=== PATIENT | male | born 1945 | race Caucasian/White ===

== ENCOUNTER 2016-06-09 17:57 | Emergency (ER) | payer OTHER ==
--- NOTE | 2016-06-09 18:06 | EDPHY ---
H & P Time Seen by Provider: 06/09/16 17:57 HPI/ROS: CHIEF COMPLAINT: Low back pain. HISTORY OF PRESENT ILLNESS: This patient is a 71 year old male with a history of LBP who presents to the Emergency Department by EMS following an episode of acute low back pain with associated bilateral leg numbness this afternoon. He was attempting to lift the lid off of his grill when he experience an acute exacerbation of chronic low back pain and lost feeling in both of his lower extremities, causing him to fall over. Denies loss of consciousness or head, neck, or back injury due to the incident. He has been experiencing low back pain since October and has a follow-up appointment with Dr. Tahir Rizo, neurosurgery, scheduled for this Saturday. He has a history of intermittent paresthesias in both legs. He takes Gabapentin three times daily to treat his chronic pain and paresthesias. Upon arrival to the ED, he continues to complain of mild pain localized to his right hip. He denies paresthesias currently or urinary or bowel complaints. Medical history also includes type 2 diabetes and cardiac pacemaker. REVIEW OF SYSTEMS: Constitutional: No fever, no chills Eyes: No visual changes Neck: No neck pain ENT: No sore throat Respiratory: No cough, no shortness of breath Cardiac: No chest pain Gastrointestinal: No nausea, no vomiting, no abdominal pain Genitourinary: No hematuria, no dysuria Musculoskeletal: +low back pain, no leg pain or swelling Skin: No rash Neurological: No headache, +bilateral leg numbness, resolved Psychiatric: No depression Past Medical/Surgical History: Type 2 diabetes, cardiac pacemaker, bilateral knee replacements, hearing loss. Social History: Lives independently with . at bedside. Physical Exam: General Appearance: Alert, appears in pain Eyes: Pupils equal and round, no conjunctival pallor or injection ENT, Mouth: Mucous membranes moist Neck: Normal inspection Back: Midline tenderness over the sacrum Respiratory: Lungs are clear to auscultation Cardiovascular: Regular rate and rhythm Gastrointestinal: Abdomen is soft and non- tender Neurological: Alert, oriented x3, motor 5/5 both lower extremities including dorsiflexion of foot and first toe, sensory intact to light touch in BLE Skin: Warm and dry, no rash Extremities: Nontender, no pedal edema, negative straight leg raise Psychiatric: Mood and affect normal Constitutional: Initial Vital Signs Temperature (C) 36.4 C 06/09/16 18:09 Heart Rate 68 06/09/16 18:09 Respiratory Rate 20 06/09/16 18:09 Blood Pressure 129/81 H 06/09/16 18:09 O2 Sat (%) 90 L 06/09/16 18:09 O2 Delivery Mode Room Air O2 (L/minute) 3 Allergies/Adverse Reactions: venom-wasp [Wasp Venom] Allergy (Intermediate, Verified 12/04/11 01:27) Home Medications: Medication Instructions Recorded *Pharmacy Completed 12/03/11 12/03/11 Amlodipine Bes/Olmesartan Med 1 each PO DAILY 12/03/11 [Sherron 10-40 mg Tablet] Antiox#10/Om3/Dha/Epa/Lut/Zeax 1 each PO BID 12/03/11 [I-Caps with Lutein-[place] 3 Sfg] Aspirin [Aspirin 81mg (OTC)] 81 mg PO DAILY 12/03/11 Cholecalciferol (Vitamin D3) 2,000 unit PO DAILY 12/03/11 [Vitamin D-3] Gabapentin [Neurontin 300 MG (RX)] 300 mg PO BID 12/03/11 Glucosamine 1200mg 1,200 mg PO DAILY 12/03/11 Hydrochlorothiazide 25 mg PO DAILY 12/03/11 [Hydrochlorothiazide 25 MG (RX)] Metoprolol Succinate Xr [Toprol Xl 50 mg PO DAILY 12/03/11 50 mg (RX)] Naproxen [Naproxen 500 mg] 500 mg PO BID PRN 12/03/11 Niacin [Niacin 500 mg (OTC)] 500 mg PO TID 12/03/11 [place]-3 Fatty Acids [Fish Oil 1000 1,000 mg PO DAILY 12/03/11 mg (OTC)] Omeprazole [Prilosec 40 mg] 40 mg PO DAILY 12/03/11 Potassium Cl [Klor-Con 10 meq (RX)] 10 meq PO QID 12/03/11 Psyllium Husk (with Sugar) 1 each PO DAILY PRN 12/03/11 [Metamucil Packet] Rosuvastatin Calcium [Crestor 20mg 20 mg PO DAILY 12/03/11 (RX)] Diazepam [Valium 5 MG (*)] 5 mg PO Q6 PRN #10 tab 06/09/16 Hydrocodone/APAP 5/325 [[place] 1 - 2 tab PO Q4H PRN #15 tab 06/09/16 5/325] Medical Decision Making - Diagnostics Imaging: Study: CT of the lumbar spine Indication: Pain Results: CT scan of the lumbar spine was obtained. The results of the study are : 1. Multilevel advanced degenerative spondylosis, disk disease, and facet osteoarthrosis with accompanying central canal and neural foraminal stenoses, as above detailed. 2. Cholelithiasis. 3. Nonobstructive right nephrolithiasis. 4. Old moderate L1 compression fracture, unchanged from 2016. The study was read by the radiologist, Dr. Amrit Queen. I viewed the images myself on the PACS system. Study: CT of the lumbar spine Indication: Pain Results: CT scan of the lumbar spine was obtained. The results of the study are : There is no acute pelvic osseous abnormality identified. The study was read by the radiologist, Dr. Amrit Queen. I viewed the images myself on the PACS system. ED Course/Re-evaluation: 1756: Took EMS report at bedside: stable vitals; 200mcg administered in transport. This patient has a history of low back pain presenting with intermittent right leg paresthesias beginning in October and worsening over time. Today's incident of acute severe pain and bilateral leg paresthesias was more severe than previous, prompting his to call EMS. He has a scheduled appointment with Dr. Rizo on Saturday. Will proceed with CT of the lumbar spine and pain management. Unable to perform MRI since pt has a pacemaker. 15mg IV Toradol, 5mg IV Valium, and 2 tab PO [place] administered. 2017: Imaging results reported to me by Dr. Amrit Queen. I discussed these results with the patient and his . The pt feels much better and would like to go home. He will f/u with Dr. iRzo in the office. Differential Diagnosis: Differential diagnosis for back pain includes muscular pain, herniated disc, epidural abscess, cauda equina syndrome, discitis, spine fracture, intra- abdominal causes and urinary tract infection. - Data Points Medications Given: Discontinued Medications Hydrocodone Bitart/Acetaminophen ([place] 5/325) 2 tab PO EDNOW ONE Stop: 06/09/16 18:33 Last Admin: 06/09/16 18:48 Dose: 2 tab Hydrocodone Bitart/Acetaminophen ([place] 5/325mg Prepack#6) 1 btl TAKEHOME EDNOW ONE Stop: 06/09/16 20:39 Last Admin: 06/09/16 20:45 Dose: 1 btl Diazepam (Valium Injection) 5 mg IVP EDNOW ONE Stop: 06/09/16 18:33 Last Admin: 06/09/16 18:50 Dose: 5 mg Diazepam (Valium 5 Mg Prepack#4) 1 btl TAKEHOME EDNOW ONE Stop: 06/09/16 20:39 Last Admin: 06/09/16 20:44 Dose: 1 btl Ketorolac Tromethamine (Toradol) 15 mg IVP EDNOW ONE Stop: 06/09/16 18:34 Last Admin: 06/09/16 18:55 Dose: 15 mg Departure - Departure Disposition: Home, Routine, Self-Care Clinical Impression: Low back pain Qualifiers: Chronicity: acute Back pain laterality: bilateral Sciatica presence: without sciatica Qualified Code(s): M54.5 - Low back pain Condition: Good Instructions: Hydrocodone/Acetaminophen (By mouth), Diazepam (By mouth), Chronic Back Pain (ED) Additional Instructions: 1. Use Ibuprofen every 6 hours with food to help manage pain and inflammation. 2. Take Vicodin every 4 hours as needed for pain. 3. Take Valium every 6 hours as needed for pain. 4. Keep your appointment with Dr. Rizo on Saturday. 5. Return to the Emergency Department if you experience worsening numbness or pain, bowel or urinary incontinence, or other serious concerns. Referrals: Mary Rizo MD [Medical Doctor] - As per Instructions Prescriptions: Diazepam [Valium 5 MG (*)] 5 mg PO Q6 PRN #10 tab PRN Reason: Anxiety Hydrocodone/APAP 5/325 [[place] 5/325] 1 - 2 tab PO Q4H PRN #15 tab PRN Reason: Pain, Moderate Report Scribed for: Leeanne Pak Report Scribed by: Vanesa Garvin Date of Report: 06/09/16 Time of Report: 17:57 Physician Review and Approval Statement: 06/09/16 17:57 Portions of this note were transcribed by a medical laboratory technologist. I personally performed a history, physical exam, medical decision making, and confirmed accuracy of information the transcribed note.
[2016-06-09 18:12] VITALS: TEMP 97.5
[2016-06-09] MEDS ORDERED: HYDROCODONE/APAP 5/325 TAB PO ONE (18:32)
[2016-06-09] MEDS ORDERED: DIAZEPAM 10 MG/2 ML SYR IVP ONE (18:32)
[2016-06-09] MEDS ORDERED: KETOROLAC 30 MG/1 ML SDV IVP ONE (18:33)
[2016-06-09] MEDS ORDERED: HYDROCOD/APAP 5/325 PREPACK#6 BTL TAKEHOME ONE (20:38)
[2016-06-09] MEDS ORDERED: DIAZEPAM 5 MG PREPACK#4 BTL TAKEHOME ONE (20:38)
[2016-06-09 20:58] VITALS: BP 136/84; PULSE 69; RESP 18; O2SAT 92
== END 2016-06-09 20:57 | disposition home or self-care (01) ==
LOC: EDUNIT#
DX: M54.5 Low back pain (principal); E11.9 Type 2 diabetes mellitus without complications; Z79.82 Long term (current) use of aspirin; Z95.0 Presence of cardiac pacemaker
CPT/HCPCS: 72131; 72192; 96374; 96375; 99285; J1885

== ENCOUNTER 2016-06-12 13:35 | Inpatient (IN) | payer OTHER ==
[2016-06-12] MEDS ORDERED: METOCLOPRAMIDE 10 MG TAB PO PRN (14:45)
[2016-06-12] MEDS ORDERED: NALOXONE HCL 0.4 MG/ML INJ IVP PRN (14:45)
[2016-06-12] MEDS ORDERED: MAGNESIUM HYDROXIDE 30 ML UDCUP PO PRN (14:45)
[2016-06-12] MEDS ORDERED: LORazepam 0.5 MG TAB PO PRN (14:45)
[2016-06-12] MEDS ORDERED: BISACODYL 10 MG SUPP PR PRN (14:45)
[2016-06-12] MEDS ORDERED: morphINE PCA 30 MG/30 ML PCA IV PRN (14:45)
[2016-06-12] MEDS ORDERED: ONDANSETRON DISINTEGRATING 4 MG TAB PO PRN (14:45)
[2016-06-12] MEDS ORDERED: ONDANSETRON 4 MG/2 ML VIAL IVP PRN (14:45)
[2016-06-12] MEDS ORDERED: HYDROmorphONE/DILAUDID 1 MG/ML SYR IVP PRN (14:45)
[2016-06-12] MEDS ORDERED: diphenhydrAMINE 25 MG CAP PO PRN (14:45)
[2016-06-12] MEDS ORDERED: POLYETHYLENE GLYCOL 3350 17 GM PKT PO PRN (14:45)
[2016-06-12] MEDS ORDERED: LORazepam 2 MG/ML INJ IVP PRN (14:45)
[2016-06-12] MEDS ORDERED: ACETAMINOPHEN 325 MG TAB PO PRN (14:45)
[2016-06-12] MEDS ORDERED: LACTULOSE 20 GM/30 ML UDCUP PO PRN (14:45)
[2016-06-12] MEDS ORDERED: ZOLPIDEM TARTRATE 5 MG TAB PO PRN (14:45)
[2016-06-12 17:07] LABS: % IMMATURE GRANULYOCYTES 0.4 % (0.0-1.1); ABSOLUTE IMMATURE GRANULOCYTES 0.03 10^3/uL (0.00-0.10); ADD DIFF? NO; ADD MORPH? NO; ADD SCAN? NO; ATYPICAL LYMPHOCYTE FLAG 10 (0-99); FRAGMENT RBC FLAG 0 (0-99); HEMATOCRIT 42.8 % (40.0-51.0); HEMOGLOBIN 14.9 g/dL (13.7-17.5); LEFT SHIFT FLG 0 (0-99); LIPEMIA HEMOLYSIS FLAG 90 (0-99); MEAN CELL HEMOGLOBIN 30.3 pg (27.9-34.1); MEAN CELL HEMOGLOBIN CONCENTR. 34.8 g/dL (32.4-36.7); MEAN PLATELET VOLUME 9.3 fL (8.7-11.7); PLATELET CLUMPS FLAG 10 (0-99); PLATELET COUNT 103 10^3/uL (150-400); RED BLOOD CELL COUNT 4.92 10^6/uL (4.40-6.38); RED CELL DISTRIBUTION WIDTH 13.6 % (11.5-15.2)
[2016-06-12 17:19] LABS: ANION GAP 12 mEq/L (8-16); CALCIUM 9.6 mg/dL (8.5-10.4); CARBON DIOXIDE 21 mEq/l (22-31); CHLORIDE 105 mEq/L (97-110); GLOMERULAR FILTRATION RATE > 60; GLUCOSE 106 mg/dL (70-100); POTASSIUM 4.5 mEq/L (3.5-5.2); SODIUM 138 mEq/L (134-144)
--- NOTE | 2016-06-12 17:27 | GHP ---
DATE OF ADMISSION: 06/12/2016 CHIEF COMPLAINT: 1. Inability to walk. 2. Lower back pain with bilateral lower extremity pain and numbness from injury sustained 3 weeks a go as well as approximately 4 days ago. HISTORY OF PRESENT ILLNESS: The patient is a 71-year-old male who presented to our clinic today wit h increasing and inability to walk. He states that about 3 weeks ago he was pulling a rug off a dec k and felt a strain in his back. He stated that this pain has worsened so much to the effect that i s causing some impact to his walking. He also has numbness to the legs over the course of the last 3 weeks, and this has worsened as well. He states that this most recent Saturday (06/09/2016), he w as pulling a cover off a drill when he felt sudden worsening symptoms and weakness in his legs. He did have a fall associated with this. At this point he cannot walk more than 100 feet without falli ng. He states that he has fallen multiple times. He does get periodic numbness in the groin; he de nies any symptoms in the groin at this time. He denies any loss of bowel or bladder control. He steele d a non-myelogram CT that was done in the emergency department which showed degenerative disk change s noted. There was significant arthritis and degenerative changes noted from L1 to S1. He has trie d medications, including a Medrol Dosepak, without success. He does have some changes in his gait a nd balance. He denies any fevers or chills. No nausea, vomiting, or diarrhea. He is also a patien t of Dr. Lara. PAST MEDICAL HISTORY: 1. Hypercholesterolemia. 2. Gout. 3. Hypertension. 4. GERD. 5. Heart arrhythmias. 6. Diabetes. PAST SURGICAL HISTORY: Not listed. MEDICATIONS: 1. Bupropion HCL 150 mg. 2. Celebrex 200 mg. 3. Omeprazole. 4. Tramadol. 5. Amlodipine. 6. Allopurinol. 7. Valsartan. 8. Atorvastatin. 9. Metformin. 10. Hydrochlorothiazide. 11. B10. 12. D3. Please see med rec form after pharmacy review. ALLERGIES: Wasp venom. SOCIAL HISTORY: Patient is . Lives in the [place] area. FAMILY HISTORY: Noncontributory. IMMUNIZATIONS: Reported up to date. TRAVEL: No recent travel. REVIEW OF SYSTEMS: Complete review of systems in conjunction with the above, noted for the followin g: HEAD: No headache. No diplopia. No blurred vision. No loss of visual field. No hearing loss , tinnitus, or vertigo. PULMONARY: No cough, sputum production, hemoptysis, dyspnea, or pleuritic chest pain. CARDIAC: No chest pain or pressure. No palpitations. GI: No weight loss or gain. N o nausea, vomiting, or diarrhea. : No dysuria, hematuria, nocturia, urgency, or frequency. NEURO : Patient denies any dizziness or syncope. Does has some frequent falls. No seizures. Some pares thesias. Some weakness. Some symptoms of claudication neurogenic. PSYCHIATRIC: No suicidality or homicidality. PHYSICAL EXAMINATION: GENERAL: This is an awake, alert, oriented male, in no acute distress. VITAL SIGNS: Most recently blood pressure 126/78, heart rate of 63, 16 respirations, 94% on room air, an d a temperature of 36.4. HEENT. Head is normocephalic, atraumatic. Pupils are equal, round, and r eactive to light. EOMI's intact. Full visual sands by confrontation. Ears are patent. Nose is p atent. NECK: Soft, supple. No midline tenderness. Full range of motion in flexion, extension, la teral bearing, or rotation. RESPIRATORY AND CARDIAC: No respiratory distress. ABDOMEN: Soft, non tender. No peritoneal signs. and RECTAL: Deferred. NEURO: Patient is awake, alert, and oriented to name, place, location, date, time, and situation. Memory is intact to immediate, past, and current events. Speech with no aphasia, dysarthria, or dys phonia. Cranial nerves 2-12 are grossly intact. Motor: Patient has 5/5 strength in all muscle joão ups of the bilateral upper and lower extremities, to include deltoids, biceps, triceps, brachioradia lis, wrist flexion and extensors, special skills officer, intrinsic fingers, iliopsoas, quadriceps, hamstring, plantar flexion, dorsiflexion, EHL testing. Sensation is grossly intact to light touch throughout all derm atome distributions of upper and lower extremities. Negative straight leg raise. Negative SHADY te st. Reflexes of biceps, triceps, brachioradialis, knee jerk, and ankle jerk are 2+ out of 4. Toes are downgoing bilaterally. Joya's negative. Babinski negative. No evidence of clonus. DIAGNOSTIC STUDIES: Laboratory tests: Pending CBC, pending coag's and chemistry. DIAGNOSTIC STUDIES: CT scan, noncontrast (meaning non-myelogram study CT scan), that was obtained o n 06/09/2016 at [facility] shows multilevel advanced degenerative spondylosis, disk disease, and facet osteoarthritis, with accompanying central canal and neural foraminal stenosis, mo st severe at L4-5 and L5-S1. Old moderate L1 compression fracture noted. IMPRESSION: 1. Worsening lower extremity weakness with transient and sporadic saddle numbness; none present at this time. No bowel or bladder changes. 2. Degenerative disk disease. Lumbar radiculitis. Most severe L4-5 and L5-S1. 3. Frequent falls. PLAN/DISCUSSION: The patient is a 71-year-old male who presented to my clinic today and was seen an d evaluated both by myself and Dr. Rizo. He is a gentleman who has had worsening symptoms over th e past 3 weeks since he felt a strain in his back. He was pulling a rug approximately 3 weeks ago a nd developed the strain in his back, and this progressively worsened to the point now where he can w alk no further than 100 feet, and he is falling frequently. He did have a noncontrast (specifically non-myelogram) CT scan that was done on 06/09/2016 that shows degenerative changes and central sten osis at L4-5 and L5-S1. I recommended admission to the hospital. Patient was in agreement with ion mckenzie as his is a nurse with Dr. Hieu Reyes. She was in agreement with this as well. The patie nt will be admitted to our service. I did speak with Dr. Lara, and he will consult regarding me dicine and managed the medicines on which he is currently. The patient's aspirin was held. A CT my elogram of the lumbar spine was ordered. The patient understands and agrees, as does his . All questions and concerns were answered. /[id number]/MODL
--- NOTE | 2016-06-12 17:28 | SOAPPROG ---
NARESH Progress Note Assessment/Plan: Assessment: 71 yo male admitted by neurosurgery for further w/u of advanced DJD/spondylosis back pain with progressive radiculopathy and numbness of both legs from low waist down intermittently. He was in the ER 3 nights ago when he was unable to get up a stair on his back porch due to his legs being fully numb. EMS was called and helped him up and was BIBA to ER. In the ER he had a ct done (he has a pacemaker and can not have a MRI) and Dr. Rizo would like a ct myelogram for further assessment and planning which NS has ordered for tomorrow (or if unable to be done). This is being ordered with preparation for surgery anticipated either or Saturday this week. We were asked to follow along with this delightful male w/ progress by pt and spouse due to his NIDDM, h/o pacer, cad by heart scan, htn, gerd. -back pain w/ radiculopathy and decreased intermittent leg strength - per NS, awaiting ct myelogram and surgery later this week. Pain management per NS. -htn - Don is typically well controlled with metoprolol 50 bid, hctz 25 qam, valsartan, amlodipine. Will cont on meds and check bmp (pending) and watch renal function, may need to adjust. -cad by heart scan - cont on statin, holding asa, pt self-d/c'd fish oil will need to restart after surgery, vit d, niacin. -GERD - is on ppi, cont for now. Discussed after hospitalization we could give trial w/ H2 bry and see if tolerates ok. He had tried to come off the ppi by taking a 1/2 tab and was unsuccessful. -DM - will hold metformin tomorrow w/ ct myelogram, will check fsbs, add in small dose insulin if needed. Recent a1c 6.3 which is higher than usual for Don. -dvt proph - per NS -dispo - will be inpt, anticipate several days admission w/ upcoming surgery. Plan: 06/12/16 17:16 Subjective: doing fine, eating dinner, hopeful to get myelogram tomorrow, spouse in room Objective: Vital Signs Temp Pulse Resp BP Pulse Ox 36.4 C 63 16 126/78 H 94 06/12/16 14:37 06/12/16 14:37 06/12/16 14:37 06/12/16 14:37 06/12/16 14:37 Laboratory Results 06/12/16 16:40 06/11/16 06/12/16 06/13/16 05:59 05:59 05:59 Intake Total 500 Balance 500 Gen: a&O x 3, eating dinner, good spirits HEENT: wears bilateral hearing aids (new 2-3 weeks ago) NEck: soft supple CHest: pacer L chest CV: rrr nl s1 s2 Respy CTA B Abd: soft nt/nd nl bs Ext: trace edema ble Neuro: currently sensation intact, strength symmetric ble Psych: good eye contact, good spirits - Pending Discharge Pending Discharge Within 48 Hours: No ICD10 Worksheet Patient Problems: Problems Problem Status Onset MRSA (methicillin resistant Staphylococcus aureus) Acute 06/28/15 Low back pain Acute
[2016-06-12 17:30] LABS: INR 1.07 (0.83-1.16); PROTIME(PATIENT) 13.8 SEC (12.0-15.0)
[2016-06-12] MEDS: HYDROCODONE/APAP 5/325 TAB PO PRN ×2 (19:03→23:24)
--- NOTE | 2016-06-12 19:11 | GCON ---
CONSULTATION HISTORY AND PHYSICAL ADMISSION DIAGNOSIS: Back pain with radiculopathy. HISTORY OF PRESENT ILLNESS: Patient is a 71-year-old delightful male admitted earlier today by Neurosurgery for further workup of his advanced degenerative disc disease, arthritis, spondylosis, with progressive radiculopathy and numbness of both legs (saddle distribution), which has been intermittent from about his waist down. Of note, he was in the ER 3 nights ago, when he had just returned home from a trip to see one of his granddaughters, and was trying to walk up one stair on his back porch, and was unable to move his legs. He had also had a couple recent falls. They had to call EMS, and brought him to the ER. He did have a CT done. Unfortunately, could not have an MRI due to his pacemaker, and Dr. Rizo wanted a CT myelogram for further assessment and planning prior to surgery later this week. He was in clinic today, and was admitted straight from clinic to the hospital by Neurosurgery, with orders placed for a CT myelogram hopefully tomorrow, and hopefully surgery within the next couple of days. PAST MEDICAL HISTORY: The patient's past medical history is significant for noninsulin-dependent diabetes, history of a pacemaker, coronary artery disease by heart scan, hypertension, gastroesophageal reflux. The patient and his spouse ask that we follow along to help manage these issues, as they have been patients of Dr. Ryan Eisenberg for many years now. Past medical history significant for spondylosis, DJD, radiculopathy as above, GERD, on chronic PPI, bilateral knee pain, status post bilateral TKA, coronary atherosclerosis by heart scan, hypertension, ureteral uric acid stones, remote history of ulcerative colitis. SURGICAL HISTORY: Positive for bilateral TKA. FAMILY HISTORY: His mom at 97. Dad at 82, had emphysema, peptic ulcer disease, coronary artery disease. Has a sister who is alive with hyperlipidemia. SOCIAL HISTORY: He is . He was a former smoker, but it has been more than 10 years since he last smoked. He has rare social alcohol. ALLERGIES: No known drug allergies. REVIEW OF SYSTEMS: GENERAL: He has been in his usual state of health, other than his back pain. No recent illnesses, fevers, chills. HEENT: Significant for some hearing loss. He just got hearing aids 2 or 3 weeks ago. No acute change in vision. RESPIRATORY: Denies any cough or shortness of breath. CARDIOVASCULAR : Denies any chest pain or palpitations. GI: No nausea and vomiting. Bowels have been moving regularly. MUSCULOSKELETAL: Positive for back pain. NEUROLOGIC : Positive for radiculopathy and loss of strength, and numbness in legs intermittently, see HPI. HEMATOLOGIC/ALLERGIC: Negative. PSYCHIATRIC: No acute problematic mood issues. PHYSICAL EXAMINATION: VITAL SIGNS: Blood pressure 126/78, heart rate 63, respiratory rate 16, oxygen saturation 94% on room air. GENERAL: Pleasant male, overweight, eating dinner, in good spirits, talking with his . HEENT: Bilateral hearing aids. NECK: Soft and supple. CHEST: Has pacer in his left chest. CARDIOVASCULAR: Regular rate and rhythm. Normal S1, S2. RESPIRATORY: Clear to auscultation bilaterally. ABDOMEN: Soft, nontender, nondistended. Normal bowel sounds. EXTREMITIES: Trace ankle edema on bilateral lower extremities. NEUROLOGIC: Currently sensation intact to touch, bilateral lower extremities, and symmetric strength. PSYCHIATRIC: Good eye contact and communication, in good spirits. ASSESSMENT AND PLAN: A 71-year-old male admitted by Neurosurgery for progressive back pain, djd, OA with radiculopathy for further workup and planned surgery. 1. Back pain with radiculopathy, decreased intermittent leg strength. Per Neurosurgery, awaiting CT myelogram and surgery later this week. Pain management per Neurosurgery. 2. Hypertension. Per patient, is typically well controlled with metoprolol, hydrochlorothiazide, valsartan and amlodipine. Will follow medications and adjust accordingly. Watch renal function. 3. History of coronary atherosclerosis by heart scan. Continue on a statin. Holding aspirin. The patient is self-discontinued fish oil, and will need to restart this after surgery. Is on vitamin D and niacin. 4. Gastroesophageal reflux disease. He would like to stop his PPI, did a recent trial, but was unsuccessful. Taking a half tab. Ultimately, after surgery , consider H2 bry, but for now, with upcoming surgery, we will continue with PPI. 5. Diabetes. Will hold metformin tomorrow with CT myelogram. Will place on fingerstick blood sugar checks. Add low-dose insulin if needed. Recent A1c was 6.3, which per the patient and his , it is much higher than he normally has been. 6. Deep vein thrombosis prophylaxis per Neurosurgery. 7. Disposition: The patient will be admitted to inpatient with upcoming planned surgery per Neurosurgery. Appreciate consultation, and will follow along. /[id number]/MODL MTDD
[2016-06-12] MEDS ORDERED: PSYLLIUM METAMUCIL 1 PKT PO PRN (20:10)
[2016-06-12] MEDS ORDERED: traMADol 50 MG TAB PO PRN (20:10)
[2016-06-12] MEDS: METOPROLOL TARTRATE 50 MG TAB PO SCH (20:34)
[2016-06-12] MEDS: SENNOSIDES/DOCUSATE SODIUM TAB PO SCH (20:34)
[2016-06-12] MEDS: CHOLECALCIFEROL VIT D3 2,000 UNITS TAB/CAP PO SCH (20:34)
[2016-06-12] MEDS: POTASSIUM CITRATE 10 MEQ TAB PO SCH (21:02)
[2016-06-12] MEDS: PRESERVISION AREDS2 FORMULA EYE VIT 1 EACH PO SCH (21:02)
[2016-06-12] MEDS: NS W/ 20 KCl/L 1,000 ML IV SCH (21:02)
[2016-06-12] MEDS: GABAPENTIN 300 MG CAP PO SCH (21:02)
[2016-06-12] MEDS: NIACIN 500 MG TAB PO SCH (21:02)
[2016-06-13] MEDS: oxyCODONE IR 5 MG TAB PO PRN ×4 (02:21→18:25)
[2016-06-13] MEDS: HYDROCODONE/APAP 5/325 TAB PO PRN ×3 (05:40→21:28)
--- NOTE | 2016-06-13 07:09 | NEUSURGPN ---
Assessment/Plan: Assessment: 71 yo male that was admitted to with lower back pain/BLE pain/ inability to walk/falls Plan: -pt lying in bed comfortable-continue with current pain management strategy -IM consulted and on board-appreciate their input and care -PT/OT -CT myelogram this am pending -pt to call for help with walking around or to bathroom to prevent falls-pt understands this and agrees -warning signs given -call with any questions or concerns -please call when CT is completed Subjective: Awake and alert. NAD. Eating/drinking and voiding. No f/c/n/v/d. No other complaints or concerns Objective: AAO x 3, PERRLA/EOMI no droop CN 2-12 grossly intact +lt touch 5/5 BUE/BLE = +cms/nv intact x 4 Neuro Check Frequency: per routine Urinary Catheter in Place: No - Physician Discussed Patient with .: Darrius Patient Seen by .: Darrius Neurosurgery Physical Exam - Vitals, I&O, Labs I and O 06/12/16 06/13/16 06/14/16 05:59 05:59 05:59 Intake Total 2300 Output Total 900 Balance 1400 Weight 99.79 kg Intake: Oral (ml) 1550 IV Infused (ml) 750 NS W/ 20 KCl/L 1,000 ml @ 750 75 mls/hr IV CONT RUTH Rx #:[id number] Output: Urine (ml) 900 Toilet 900 Other: Number of Voids Toilet 1 Vital Signs Temp Pulse Resp BP Pulse Ox 36.4 C 65 16 127/87 H 95 06/13/16 04:00 06/13/16 04:00 06/13/16 04:00 06/13/16 04:00 06/13/16 04:00 Laboratory Results 06/12/16 16:40 06/12/16 16:40 ICD10 Worksheet Patient Problems: Problems Problem Status Onset Low back pain Acute MRSA (methicillin resistant Staphylococcus aureus) Acute 06/28/15
[2016-06-13] MEDS: GABAPENTIN 300 MG CAP PO SCH ×3 (08:05→21:29)
[2016-06-13] MEDS: POTASSIUM CITRATE 10 MEQ TAB PO SCH ×3 (08:07→21:29)
[2016-06-13] MEDS: METOPROLOL TARTRATE 50 MG TAB PO SCH ×2 (08:07→21:26)
[2016-06-13] MEDS: PRESERVISION AREDS2 FORMULA EYE VIT 1 EACH PO SCH ×2 (08:07→17:30)
[2016-06-13] MEDS: CHOLECALCIFEROL VIT D3 2,000 UNITS TAB/CAP PO SCH ×2 (08:07→21:29)
[2016-06-13] MEDS: NIACIN 500 MG TAB PO SCH ×3 (08:07→21:29)
[2016-06-13] MEDS: SENNOSIDES/DOCUSATE SODIUM TAB PO SCH ×2 (08:08→21:29)
[2016-06-13] MEDS: VALSARTAN 160 MG TAB PO SCH (08:08)
--- NOTE | 2016-06-13 08:42 | SOAPPROG ---
SOAP Progress Note Assessment/Plan: Assessment: Plan: 06/13/16 08:41 complex spinal DDD/DJD--significant neurologic consequences, CT myelogram pending today. HTN, CAD, high chol, DM--stable cleared for surgery constipation--make miralax daily scheduled Subjective: Reports progressive N/T in pelvis and right leg. Increasing weakness and limited mobility. CT myelogram pending. Objective: Vital Signs Temp Pulse Resp BP Pulse Ox 37.0 C 68 16 138/82 H 94 06/13/16 07:27 06/13/16 08:07 06/13/16 07:27 06/13/16 08:08 06/13/16 07:27 Laboratory Results 06/12/16 16:40 06/12/16 16:40 06/12/16 06/13/16 06/14/16 05:59 05:59 05:59 Intake Total 2300 Output Total 900 Balance 1400 PT 13.8 SEC (12.0-15.0) 06/12/16 16:40 INR 1.07 (0.83-1.16) 06/12/16 16:40 Gen: pleasant, uncomfortable Heart: RRR Pacer left chest wall Lungs: CTAB LE's no edema ICD10 Worksheet Patient Problems: Problems Problem Status Onset Low back pain Acute MRSA (methicillin resistant Staphylococcus aureus) Acute 06/28/15
[2016-06-13] MEDS: NS W/ 20 KCl/L 1,000 ML IV SCH (10:15)
[2016-06-13] MEDS ORDERED: NA BICARBONATE 50 MEQ/50 ML VIAL ONE (10:24)
[2016-06-13] MEDS ORDERED: IOPAMIDOL (ISOVUE-M 200) 20 ML VIAL IV ONE (10:24)
[2016-06-13] MEDS ORDERED: LIDOCAINE 1% 30 ML SDV ONE (10:24)
[2016-06-13] MEDS: POLYETHYLENE GLYCOL 3350 17 GM PKT PO SCH (14:16)
[2016-06-13] MEDS: HYDROCHLOROTHIAZIDE 25 MG TAB PO SCH (16:36)
[2016-06-13] MEDS: PANTOPRAZOLE SODIUM 40 MG TAB PO SCH (17:30)
[2016-06-13] MEDS: METHOCARBAMOL 750 MG TAB PO PRN (18:26)
[2016-06-14] MEDS: METHOCARBAMOL 750 MG TAB PO PRN ×2 (01:34→08:06)
[2016-06-14] MEDS: oxyCODONE IR 5 MG TAB PO PRN ×3 (01:34→12:13)
--- NOTE | 2016-06-14 07:44 | NEUSURGPN ---
Assessment/Plan: Assessment: 71 yo male that was admitted to with lower back pain/BLE pain/ inability to walk/falls Plan: -pt lying in bed comfortable-continue with current pain management strategy -IM consulted and on board-appreciate their input and care-cleared from IM for surgery today -pt set for L3/4 and L4/5 laminectomy -consents, need and risks of surgery was discussed -OR notified to contact [facility] for pacemaker -PT/OT-CPM -CT myelogram shows stenosis L3/4 and L4/5 stenosis -pt to call for help with walking around or to bathroom to prevent falls-pt understands this and agrees -warning signs given -call with any questions or concerns Subjective: Awake and alert. NAD. NPO. No steele/neck/chest/abd or gu complaints. No f/c/n/v /d. Objective: AAO x 3, PERRLA/EOMI no droop CN 2-12 grossly intact +lt touch 5/5 BUE/BLE = +cms/nv intact x 4 Neuro Check Frequency: per routine Urinary Catheter in Place: No - Physician Discussed Patient with Dr.: Darrius Patient Seen by .: Darrius Neurosurgery Physical Exam - Vitals, I&O, Labs I and O 06/13/16 06/14/16 06/15/16 05:59 05:59 05:59 Intake Total 2300 400 Output Total 900 300 Balance 1400 100 Weight 99.79 kg Intake: Oral (ml) 1550 400 IV Infused (ml) 750 NS W/ 20 KCl/L 1,000 ml @ 750 75 mls/hr IV CONT RUTH Rx #:[id number] Output: Urine (ml) 900 300 Toilet 900 Urinal 300 Other: Number of Voids Toilet 1 Urinal 1 Vital Signs Temp Pulse Resp BP Pulse Ox 36.4 C 69 16 131/83 H 95 06/14/16 07:29 06/14/16 07:29 06/14/16 07:29 06/14/16 07:29 06/14/16 07:29 Laboratory Results 06/12/16 16:40 06/12/16 16:40 ICD10 Worksheet Patient Problems: Problems Problem Status Onset Low back pain Acute MRSA (methicillin resistant Staphylococcus aureus) Acute 06/28/15
[2016-06-14] MEDS: HYDROCODONE/APAP 5/325 TAB PO PRN (08:06)
[2016-06-14] MEDS: POLYETHYLENE GLYCOL 3350 17 GM PKT PO SCH (08:08)
[2016-06-14] MEDS: NIACIN 500 MG TAB PO SCH ×3 (08:09→21:07)
[2016-06-14] MEDS: POTASSIUM CITRATE 10 MEQ TAB PO SCH ×3 (08:09→21:07)
[2016-06-14] MEDS: SENNOSIDES/DOCUSATE SODIUM TAB PO SCH ×2 (08:09→20:29)
[2016-06-14] MEDS: HYDROCHLOROTHIAZIDE 25 MG TAB PO SCH (08:09)
[2016-06-14] MEDS: METOPROLOL TARTRATE 50 MG TAB PO SCH ×2 (08:09→20:21)
[2016-06-14] MEDS: PRESERVISION AREDS2 FORMULA EYE VIT 1 EACH PO SCH ×2 (08:09→17:29)
[2016-06-14] MEDS: VALSARTAN 160 MG TAB PO SCH (08:09)
[2016-06-14] MEDS: GABAPENTIN 300 MG CAP PO SCH ×3 (08:09→21:08)
[2016-06-14] MEDS: CHOLECALCIFEROL VIT D3 2,000 UNITS TAB/CAP PO SCH ×2 (08:09→20:28)
--- NOTE | 2016-06-14 08:23 | SOAPPROG ---
SOAP Progress Note Assessment/Plan: Assessment: Plan: 06/13/16 08:41 complex spinal DDD/DJD--significant neurologic consequences, CT myelogram pending today. HTN, CAD, high chol, DM--stable cleared for surgery constipation--make miralax daily scheduled 06/14/16 08:22 Critical spinal stenosis--proceed with surgery as planned. No prior issues with anesthesia. Pacer/Defib HTN, CAD, high chol, DM--stable Subjective: He is doing ok. Prepared for surgery this afternoon. No prior problems with anesthesia. Objective: Vital Signs Temp Pulse Resp BP Pulse Ox 36.4 C 69 16 131/83 H 95 06/14/16 07:29 06/14/16 07:29 06/14/16 07:29 06/14/16 07:29 06/14/16 07:29 Laboratory Results 06/12/16 16:40 06/12/16 16:40 06/13/16 06/14/16 06/15/16 05:59 05:59 05:59 Intake Total 2300 400 Output Total 900 300 Balance 1400 100 PT 13.8 SEC (12.0-15.0) 06/12/16 16:40 INR 1.07 (0.83-1.16) 06/12/16 16:40 Gen: NAD Lungs: CTAB Heart: RRR Abd + bs soft LE's no edema CT myelogram--critical stenosis, contrast trapped ICD10 Worksheet Patient Problems: Problems Problem Status Onset Low back pain Acute MRSA (methicillin resistant Staphylococcus aureus) Acute 06/28/15
[2016-06-14] MEDS ORDERED: DEPO METHYLPREDNISOLONE 40 MG/ML SDV ONE (12:47)
[2016-06-14] MEDS ORDERED: BACITRACIN 50,000 UNITS/10 ML SYR IRR ONE (12:47)
[2016-06-14] MEDS ORDERED: BUPIVACAINE/EPI 0.25% 30 ML SDV ONE (12:47)
[2016-06-14] MEDS ORDERED: THROMBIN (RECOMBINANT) 5,000 UNIT VIAL TP ONE (12:47)
[2016-06-14] MEDS ORDERED: REMIFENTANIL HCL 1 MG VIAL ONE ×2 (15:07→17:02)
[2016-06-14] MEDS ORDERED: MIDAZOLAM 2 MG/2 ML VIAL ONE (15:08)
[2016-06-14] MEDS ORDERED: PROPOFOL/EMULSION 500 MG/50 ML BOTTLE IV ONE ×2 (15:08→17:02)
[2016-06-14] MEDS ORDERED: fentaNYL 250 MCG/5 ML INJ ONE (15:08)
[2016-06-14] MEDS ORDERED: LIDOCAINE 2% 100 MG/5 ML SYR ONE (15:11)
[2016-06-14] MEDS ORDERED: VANCOMYCIN 1.5 GM in D5W 250 ML IV ONE (15:30)
[2016-06-14] MEDS ORDERED: ceFAZolin 2 GM/DEXTROSE 100 ML IV ONE (16:00)
[2016-06-14] MEDS ORDERED: ALBUMIN 5% 250 ML BOTTLE IV ONE (16:02)
[2016-06-14] MEDS ORDERED: DOPamine/DEXTROSE/250 ML BAG IV ONE (17:01)
[2016-06-14] MEDS: PANTOPRAZOLE SODIUM 40 MG TAB PO SCH (17:30)
[2016-06-14] MEDS ORDERED: fentaNYL 100 MCG/2 ML INJ ONE ×2 (17:42→18:43)
--- NOTE | 2016-06-14 18:12 | SOAPPROG ---
SOAP Progress Note Assessment/Plan: Post Op Visit: S: Awake and alert. Pt with expected lower back pain O: AFVSS, PERRLA/EOMI no droop CN 2-12 grossly intact +lt touch 5/5 BUE/BLE = CDI MOE in place A/P: 71 yo male that is s/p L3/4 and L4/5 laminectomy for LE pain and claudication -orders in place -call with any questions or concerns -take medications as directed -seen by Dr Rizo as well Objective: Vital Signs Temp Pulse Resp BP Pulse Ox 36.4 C 69 16 131/83 H 95 06/14/16 07:29 06/14/16 07:29 06/14/16 07:29 06/14/16 07:29 06/14/16 07:29 Laboratory Results 06/12/16 16:40 06/12/16 16:40 06/13/16 06/14/16 06/15/16 05:59 05:59 05:59 Intake Total 2300 400 Output Total 900 300 Balance 1400 100 PT 13.8 SEC (12.0-15.0) 06/12/16 16:40 INR 1.07 (0.83-1.16) 06/12/16 16:40 ICD10 Worksheet Patient Problems: Problems Problem Status Onset Low back pain Acute MRSA (methicillin resistant Staphylococcus aureus) Acute 06/28/15
[2016-06-14] MEDS ORDERED: DIAZEPAM 5 MG TAB PO PRN (18:14)
[2016-06-14] MEDS ORDERED: DIAZEPAM 10 MG/2 ML SYR IVP PRN (18:14)
[2016-06-14] MEDS ORDERED: VANCOMYCIN 1.5 GM in D5W 250 ML IV SCH (18:30)
--- NOTE | 2016-06-14 19:04 | GOP ---
[f rep st] OPERATIVE REPORT DATE OF OPERATION: 06/14/2016 SURGEON: Augustin Rizo MD PATROL DEPUTY SHERIFF: Reuben Grijalva PA-C PREOPERATIVE DIAGNOSIS: Severe lumbar stenosis, L1-2, L2-3, L3-4, L4-5. POSTOPERATIVE DIAGNOSIS: Severe lumbar stenosis, L1-2, L2-3, L3-4, L4-5. PROCEDURE PERFORMED: Lumbar laminectomy and bilateral decompression, bilateral medial facetectomies (L3-4, L4-5) with resection of a right L4-5 hemorrhagic synovial cyst ([id number]), microscope, f luoroscopy. FINDINGS: ESTIMATED BLOOD LOSS: 100 cc. INDICATIONS: The patient is an elderly gentleman who came to the office unable to ambulate because of excruciating low back pain and difficulty with the right leg. He was unable to walk and he was a dmitted for workup to the hospital, and a CT myelogram was performed, demonstrating a complete myelo graphic block at L4-5, but there was still severe stenosis at L1-2, L2-3, L3-4, above this level. I did not feel the upper levels were causing his symptoms and it was most likely L4-5, but I explaine d to him and the family the possibility that the upper levels of the lumbar spine were symptomatic, but I suggested a 2-level laminectomy at L3-4, L4-5. The risks of nerve injury and spinal fluid mary k were discussed. He understood there was risk of continued symptoms and possibly more surgery. Th ey accepted these risks and they wanted to proceed. DESCRIPTION OF PROCEDURE: Patient was taken to the operating room, placed in the supine position. General anesthesia was begun, and he was flipped prone onto the Fidencio frame. Care was taken to pad all points of contact. His back was sterilely prepped and draped in usual fashion. We made a 4.5 cm incision above the 3-4, 4-5 interspaces. The subcutaneous tissue was dissected usi ng Bovie cautery down to the fascia, and a subperiosteal dissection was made down to the inferior la chuy of L2. The lamina of L3, L4, and the rostral lamina of L5 were exposed. A localizing x-ray wa s taken, and a self-retaining retractor was placed. We removed the complete L4 lamina and spinous p rocess and performed bilateral medial facetectomies at L4-5 and opened the ligamentum flavum, and un francisco javier the scope we resected a large, old hemorrhagic cyst from the right L4-5 facet joint. It was angelica te impressive; it was exophytic and filled the facet itself and went into the spinal canal and cause d severe stenosis of the spinal canal. It took considerable time under the scope to completely diss ect this free from the dura and resect it. A portion of it was sent to Pathology for identification . We resected the rostral arch of L5 and decompressed the L5 nerves down medial to the L5 pedicle, in the mid to lower 3rd of the pedicle of L5. We worked our way rostrally, decompressing the central a nd then lateral spinal canal, all the way up to the L3-4 level, removing the inferior arch of L3, un dercutting the L3 lamina rostrally, and decompressing the inferior border of the L4 pedicle. There was severe bilateral facet arthropathy of L3-4, and this too was decompressed here as well. The rig ht side was worse than the left. A great decompression was obtained. We irrigated with antibiotic/saline solution. There was really pretty remarkable bleeding and oozin g from the epidural space that really could not be controlled. It was coming from all directions, a nd even though we had packed it off several times during the surgery, it continued to ooze, likely r elated to the patient's aspirin usage. We were, nevertheless, very happy with our decompression, an d we placed a subfascial drain, and then closed the incision in multiple layers using Vicryl sutures . COMPLICATIONS: None. /[id number]/MODL
[2016-06-14] MEDS ORDERED: FAMOTIDINE 20 MG/NACL 50 ML IV SCH (21:00)
[2016-06-14] MEDS: HYDROCODONE/APAP 10/325 TAB PO PRN (21:08)
[2016-06-14 23:54] VITALS: RESP 16
[2016-06-15 05:27] LABS: % IMMATURE GRANULYOCYTES 0.5 % (0.0-1.1); ABSOLUTE IMMATURE GRANULOCYTES 0.04 10^3/uL (0.00-0.10); ADD DIFF? NO; ADD MORPH? NO; ADD SCAN? NO; ATYPICAL LYMPHOCYTE FLAG 0 (0-99); FRAGMENT RBC FLAG 20 (0-99); HEMATOCRIT 33.2 % (40.0-51.0); HEMOGLOBIN 12.2 g/dL (13.7-17.5); LEFT SHIFT FLG 0 (0-99); LIPEMIA HEMOLYSIS FLAG 90 (0-99); MEAN CELL HEMOGLOBIN 32.2 pg (27.9-34.1); MEAN CELL HEMOGLOBIN CONCENTR. 36.7 g/dL (32.4-36.7); MEAN CELL VOLUME 87.6 fL (81.5-99.8); MEAN PLATELET VOLUME 9.2 fL (8.7-11.7); PLATELET CLUMPS FLAG 10 (0-99); PLATELET COUNT 97 10^3/uL (150-400); RED BLOOD CELL COUNT 3.79 10^6/uL (4.40-6.38); RED CELL DISTRIBUTION WIDTH 13.4 % (11.5-15.2)
[2016-06-15] MEDS: HYDROCODONE/APAP 10/325 TAB PO PRN ×2 (05:43→12:51)
[2016-06-15 05:46] LABS: ANION GAP 14 mEq/L (8-16); CALCIUM 9.5 mg/dL (8.5-10.4); CARBON DIOXIDE 20 mEq/l (22-31); CHLORIDE 105 mEq/L (97-110); CREATININE 1.1 mg/dL (0.7-1.3); GLOMERULAR FILTRATION RATE > 60; GLUCOSE 164 mg/dL (70-100); POTASSIUM 4.7 mEq/L (3.5-5.2); SODIUM 139 mEq/L (134-144)
[2016-06-15 07:50] VITALS: O2SAT 93
--- NOTE | 2016-06-15 08:06 | NEUSURGPN ---
Date of Surgery: 06/14/16 Post Op Day: 1 Assessment/Plan: 71 yo male s/p L3/4 and L4/5 laminectomy, POD#1 - neuro stable - pain control - PT/OT - MOE drain x 1 - dispo: home later today if continues to progress well Subjective: No lower extremity pain, numbness, tingling. Back pain controlled. Objective: Awake. ALert. PERRL. EOMI Following commands Muscle strength full at 5/5 Sensation intact - Physician Discussed Patient with DrSebastien: Darrius Neurosurgery Physical Exam - Vitals, I&O, Labs I and O 06/14/16 06/15/16 06/16/16 05:59 05:59 05:59 Intake Total 400 1050 Output Total 300 970 Balance 100 80 Intake: Oral (ml) 400 250 IV Infused (ml) 800 NS W/ 20 KCl/L 1,000 ml @ 800 75 mls/hr IV CONT RUTH Rx #:[id number] Output: Urine (ml) 300 500 Toilet 150 Urinal 300 350 Estimated Blood Loss (ml) 200 Wound Drainage (ml) 270 #1 Back Jim Obrien 270 Other: Number of Voids Urinal 1 Vital Signs Temp Pulse Resp BP Pulse Ox 36.4 C 85 16 130/78 H 93 06/15/16 07:47 06/15/16 07:47 06/15/16 07:47 06/15/16 07:47 06/15/16 07:47 Laboratory Results 06/15/16 05:00 06/15/16 05:00 ICD10 Worksheet Patient Problems: Problems Problem Status Onset Low back pain Acute MRSA (methicillin resistant Staphylococcus aureus) Acute 06/28/15
[2016-06-15] MEDS: POTASSIUM CITRATE 10 MEQ TAB PO SCH ×2 (08:21→16:14)
[2016-06-15] MEDS: POLYETHYLENE GLYCOL 3350 17 GM PKT PO SCH (08:21)
[2016-06-15] MEDS: METOPROLOL TARTRATE 50 MG TAB PO SCH (08:22)
[2016-06-15] MEDS: VALSARTAN 160 MG TAB PO SCH (08:22)
[2016-06-15] MEDS: SENNOSIDES/DOCUSATE SODIUM TAB PO SCH (08:22)
[2016-06-15] MEDS: CHOLECALCIFEROL VIT D3 2,000 UNITS TAB/CAP PO SCH (08:22)
[2016-06-15] MEDS: NIACIN 500 MG TAB PO SCH ×2 (08:22→16:15)
[2016-06-15] MEDS: HYDROCHLOROTHIAZIDE 25 MG TAB PO SCH (08:22)
[2016-06-15] MEDS: PRESERVISION AREDS2 FORMULA EYE VIT 1 EACH PO SCH (08:22)
[2016-06-15] MEDS: GABAPENTIN 300 MG CAP PO SCH ×2 (08:23→16:14)
--- NOTE | 2016-06-15 08:35 | SOAPPROG ---
NARESH Progress Note Assessment/Plan: Assessment: Plan: 06/13/16 08:41 complex spinal DDD/DJD--significant neurologic consequences, CT myelogram pending today. HTN, CAD, high chol, DM--stable cleared for surgery constipation--make miralax daily scheduled 06/14/16 08:22 Critical spinal stenosis--proceed with surgery as planned. No prior issues with anesthesia. Pacer/Defib HTN, CAD, high chol, DM--stable 06/15/16 08:34 s/p two level decompression/lami/large facet cyst removal. Doing well. Would keep MOE until drainage subsides, Jackie capable of emptying CAD/HTN/DM--all stable anticipate home today Subjective: He feels much better!! Pain well controlled. Eating, comfortable Objective: Vital Signs Temp Pulse Resp BP Pulse Ox 36.4 C 85 16 130/78 H 93 06/15/16 07:47 06/15/16 07:47 06/15/16 07:47 06/15/16 07:47 06/15/16 07:47 Laboratory Results 06/15/16 05:00 06/15/16 05:00 06/14/16 06/15/16 06/16/16 05:59 05:59 05:59 Intake Total 400 1050 Output Total 300 970 40 Balance 100 80 -40 PT 13.8 SEC (12.0-15.0) 06/12/16 16:40 INR 1.07 (0.83-1.16) 06/12/16 16:40 Gen: NAD, bright HEENT: minimal hoarseness Lungs: CTAB no crackles Heart: RRR Pacer left chest Abd + bs soft NT LE's no edema--in teds Neuro: nl rom, follows commands ICD10 Worksheet Patient Problems: Problems Problem Status Onset Low back pain Acute MRSA (methicillin resistant Staphylococcus aureus) Acute 06/28/15
[2016-06-15] MEDS ORDERED: FAMOTIDINE 20 MG TAB PO SCH (09:00)
[2016-06-15 12:09] VITALS: BP 139/73; PULSE 75; TEMP 97.9
[2016-06-15] MEDS: METHOCARBAMOL 750 MG TAB PO PRN (12:51)
[2016-06-15] MEDS: oxyCODONE IR 5 MG TAB PO PRN (16:14)
[2016-06-16] MEDS ORDERED: metFORMIN SR 500 MG TAB PO SCH (09:00)
== END 2016-06-15 16:37 | disposition home or self-care (01) | DRG 517 ==
LOC: F3N 14:33
PROVIDERS: ADMIT Neurological Surgery; ATTEND Neurological Surgery
PROC: 01NB0ZZ Release Lumbar Nerve, Open Approach (ICD-10-PCS; principal; 2016-06-14 13:30)
PROC: 0JB70ZX Excision of Back Subcutaneous Tissue and Fascia, Open Approach, Diagnostic (ICD-10-PCS; principal; 2016-06-14 13:30)
DX: M99.73 Connective tissue and disc stenosis of intervertebral foramina of lumbar region (principal); M47.26 Other spondylosis with radiculopathy, lumbar region; M71.38 Other bursal cyst, other site; M10.9 Gout, unspecified; I10 Essential (primary) hypertension; K21.9 Gastro-esophageal reflux disease without esophagitis; K59.00 Constipation, unspecified; E11.9 Type 2 diabetes mellitus without complications; I25.10 Atherosclerotic heart disease of native coronary artery without angina pectoris; E78.00 Pure hypercholesterolemia, unspecified; Z95.0 Presence of cardiac pacemaker; Z96.653 Presence of artificial knee joint, bilateral; Z87.442 Personal history of urinary calculi; Z87.891 Personal history of nicotine dependence
CPT/HCPCS: 96374; 97116-GP; 97162-GP; 97165-GO; 97535-GO; G8978-GP-CJ; G8979-GP-CI; G8987-GO-CJ; G8988-GO-CI; G8989-GO-CI; J1020; J1265; J1885; J2001; J2250; J2704; J3010; J3370; P9041; Q9966

== ENCOUNTER 2016-07-30 15:49 | Inpatient (IN) | payer OTHER ==
--- NOTE | 2016-07-30 16:24 | EDPHY ---
H & P Stated Complaint: r back pain fever at dr office laminectomy 6wks ago Source: Patient, Family, Old records Exam Limitations: Clinical condition - Personal History Current Tetanus/Diphtheria Vaccine: Yes Tetanus Vaccine Date: 2011 - Medical/Surgical History Hx Asthma: No Hx Chronic Respiratory Disease: No Hx Diabetes: Yes Hx Cardiac Disease: Yes Hx Renal Disease: No Hx Cirrhosis: No Hx Alcoholism: No Hx HIV/AIDS: No Hx Splenectomy or Spleen Trauma: No Other PMH: bilateral knee replacements. Type2 DM. HTN. Pacemaker. Sciatica - Social History Smoking Status: Former smoker <Vivien Liang - Last Filed: 07/30/16 23:10> <Fanta Mckenzie - Last Filed: 07/31/16 22:55> Time Seen by Provider: 07/30/16 16:11 HPI/ROS: CHIEF COMPLAINT: Fever, right hip pain HISTORY OF PRESENT ILLNESS: 71-year-old male presents to the emergency department with his sent from Dr. Lara's office for fatigue, fevers and right hip pain. Patient had a lumbar laminectomy by Dr. Rizo on June 14. He has been doing well, is doing physical therapy, last night he started having right hip pain again and back pain, worse with movement, chills and rigors. He woke up this morning with worsening symptoms, decreased appetite, very fatigued, temperature to 100.3 for , they went in to Dr. Lara office today where he had a temperature 101.1degrees, they sent him here for further workup. Patient denies chest pain, shortness of breath, cough, nasal congestion, abdominal pain. No saddle anesthesias, no loss of control of his bowel or bladder, no leg weakness. Patient reports his hip pain is getting worse as the day goes on. REVIEW OF SYSTEMS: A comprehensive 10 point review of systems is otherwise negative aside from elements mentioned in the history of present illness. (Vivien Liang) - Physical Exam Exam: Physical Exam Gen: Oriented, drowsy HEENT: PERRL, moist mucous membranes NECK: no meningismus CV: regular rate and regular rhythm, systolic murmur PULM: CTAB, no wheezes ABDOMEN: Obese, soft, non tender to palpation, BS present BACK: No CVA tenderness, no midline tenderness, right-sided SI joint tenderness NEURO: Follows commands, no facial asymmetry, moves all extremities, falls asleep in between questioning EXTREMITIES: normal appearing, no hip pain with passive range of motion SKIN: no rash or break in skin on exposed skin PSYCH: answers questions appropriately. (Vivien Liang) Constitutional: Initial Vital Signs Temperature (C) 36.7 C 07/30/16 16:00 Heart Rate 85 07/30/16 16:00 Respiratory Rate 20 07/30/16 16:00 Blood Pressure 122/70 H 07/30/16 16:00 O2 Sat (%) 94 07/30/16 16:00 O2 Delivery Mode Nasal Cannula O2 (L/minute) 2 Allergies/Adverse Reactions: venom-wasp [Wasp Venom] Allergy (Intermediate, Verified 07/30/16 15:58) Home Medications: Medication Instructions Recorded Cholecalciferol (Vitamin D3) 2,000 unit PO BID 12/03/11 [Vitamin D-3] Hydrochlorothiazide [HCTZ (*)] 25 mg PO HS 12/03/11 Metoprolol Tartrate [Lopressor 50 50 mg PO BIDMEAL 06/12/16 mg (*)] Potassium Citrate [Potassium 20 meq PO TID 06/12/16 Citrate ER] Valsartan [Diovan] 320 mg PO DAILY@1200 06/12/16 amLODIPine BESYLATE [Amlodipine 10 mg PO DAILY 06/12/16 Besylate] Allopurinol [Allopurinol 300 MG 300 mg PO HS 07/30/16 (RX)] Aspirin EC [Aspirin EC 81 mg (*)] 81 mg PO DAILY 07/30/16 Atorvastatin Calcium [Lipitor 40 40 mg PO DAILY@1800 07/30/16 mg (*)] Gabapentin [Neurontin 300 MG (*)] 300 mg PO TID 07/30/16 Herbals/Supplements -Info Only 1 ea PO AD 07/30/16 Niacin ER [Niaspan 500 mg (*)] 500 mg PO BIDMEAL 07/30/16 Omeprazole [Prilosec 20 mg] 20 mg PO Q2D@1800 07/30/16 Psyllium Husk (with Sugar) 1 pkt PO HS 07/30/16 [Metamucil Packet] Vit A/Vit C/Vit E/Zinc/Copper 1 each PO BID@1200,1800 07/30/16 [I-Caps Areds Softgel] Vitamin B Complex [B Complex] 1 each PO DAILY@1800 07/30/16 buPROPion XL [Wellbutrin Xl] 150 mg PO DAILY 07/30/16 Medical Decision Making - Diagnostics Imaging: Discussed imaging studies w/ metal building assembler Radiologist <Vivien Liang - Last Filed: 07/30/16 23:10> - Diagnostics Imaging: Discussed imaging studies w/ metal building assembler Radiologist <Fanta Mckenzie - Last Filed: 07/31/16 22:55> - Diagnostics EKG Interpretation: EKG shows normal sinus rhythm, rate 91, left axis deviation, poor R-wave progression, normal intervals (Vivien Liang) ED Course/Re-evaluation: IV established, sepsis labs ordered along with chest x-ray, urinalysis, and EKG. Patient has triage temperature that was normal, I took his oral temperature during my initial exam and it was 38.5. Patient was given 2 Tylenol with a small sip of water. CBC shows an elevated white blood cell count at 15,000 with a left shift, lactate is 3.3, sed rate 92, C reactive protein 187. 1730- Severe sepsis declared. Invanz and vanco ordered. Dr. Vargas has been consulted. I discussed imaging options as the patient has a pacemaker. He is refusing a CT myelogram which he had before his surgery on June. CT lumbar spine and pelvis with IV contrast has been ordered. Patient is feeling after 2 L of IV fluid. He is more awake and alert. Temperature is to 36.8. Vital signs continue stable normal heart rate and blood pressure. CT lumbar spine and pelvis with IV contrast is negative for any fluid collection or abscess. Patient is admitted to the hospitalist for further workup for this patient's unidentified infection. I have spoken to Dr. Mosley who agrees to admit the patient. 0- Dr. Mosley has called me from the patient Care unit letting me know that this is Dr. Lara patient, he admits his own patients. I have called Dr. Lara to give him the opportunity to admit this patient and he says the hospitalist can see and treat the patient. (Vivien Liang) The patient presents to the ED with hip pain and fever and concerns for deep abscess. The patient did have evidence of end-organ dysfunction and met criteria for severe sepsis. This condition was identified by myself at 1715. The patients vital signs are 122/70, 85, 20, 94%, 38.5. The patient has a venous lactic acid performed within 3 hours of the identification of severe sepsis which was found to be 3.3 The patient has blood cultures drawn and received Invanz and vancomycin IV, per the severe sepsis treatment protocol. Repeat lactic acid was 1.6. (Fanta Mckenzie) Differential Diagnosis: Diagnosis considered but not limited to psoas abscess, spinal abscess, pneumonia , influenza, (Vivien Liang) Other Provider: I evaluated and participated in the management of the patient. My co-signature indicates that I have reviewed this chart and I agree with the findings and plan of care as documented. My personal H&P findings include: 71-year-old male with fever, right hip pain, back pain and fatigue. He is 6 weeks status post a lumbar laminectomy and has been progressing well. Right hip and back pain developed last pm. Today developed fatigue, fever, anorexia. On exam he is noted to be slightly somulent, sleepy, but easily aroused and alert. Reports significant pain in right lateral hip. Range of motion at the hip itself does not elicit significant pain, palpation over low right back/SI area and lateral hip are tender. No erythema on skin. No warmth. Eval included CT lumbar spine and CT abd pelvis to evaluate for abscess or source of fever. No clear source identified. CXR and Urine neg for source. Treated with invanz, vancomycin in ED. Admit to medicine service; NS aware. (Fanta Mckenzie) - Data Points Laboratory Results: Laboratory Results 07/30/16 16:28 07/30/16 16:28 Microbiology Results: MICROBIOLOGY 07/30/16 16:53 Urine,Clean Catch Urine Culture - Preliminary 07/30/16 16:55 Blood Blood Culture - Preliminary 07/30/16 16:55 Blood Blood Panel (PCR) - Final Enterococcus Species Medications Given: Discontinued Medications Acetaminophen (Tylenol) 650 mg PO EDNOW ONE Stop: 07/30/16 16:50 Last Admin: 07/30/16 17:25 Dose: 650 mg Hydromorphone HCl (Dilaudid) 1 mg IVP EDNOW ONE Stop: 07/30/16 19:11 Last Admin: 07/30/16 19:11 Dose: 1 mg Sodium Chloride (Ns) 1,000 mls @ 0 mls/hr IV ONCE ONE PRN Reason: Wide Open Stop: 07/30/16 16:50 Last Admin: 07/30/16 16:55 Dose: 1,000 mls Ertapenem 1 gm/ Sodium (Chloride) 100 mls @ 200 mls/hr IV EDNOW ONE PRN Reason: Protocol Stop: 07/30/16 17:28 Last Admin: 07/30/16 18:13 Dose: 100 mls Sodium Chloride (Ns) 3,000 mls @ 6,000 mls/hr 30 ml/kg infuse over 30 min ( 3000 ml) IV EDNOW ONE Stop: 07/30/16 17:45 Last Admin: 07/30/16 17:38 Dose: 3,000 mls Vancomycin/Sodium Chloride (Vancomycin 1 Gm (Premix)) 250 mls @ 250 mls/hr IV EDNOW ONE PRN Reason: Protocol Stop: 07/30/16 18:41 Last Admin: 07/30/16 19:08 Dose: 250 mls Departure <Vivien Liang - Last Filed: 07/30/16 23:10> <Fanta Mckenzie - Last Filed: 07/31/16 22:55> - Departure Disposition: [facility] Inpatient Acute Clinical Impression: Right hip pain, Severe sepsis Fever Qualifiers: Fever type: unspecified Qualified Code(s): R50.9 - Fever, unspecified Condition: Fair
[2016-07-30 16:39] LABS: % IMMATURE GRANULYOCYTES 0.5 % (0.0-1.1); ABSOLUTE IMMATURE GRANULOCYTES 0.08 10^3/uL (0.00-0.10); ADD DIFF? NO; ADD MORPH? NO; ADD SCAN? NO; ATYPICAL LYMPHOCYTE FLAG 0 (0-99); FRAGMENT RBC FLAG 0 (0-99); HEMATOCRIT 45.7 % (40.0-51.0); HEMOGLOBIN 15.7 g/dL (13.7-17.5); LEFT SHIFT FLG 10 (0-99); LIPEMIA HEMOLYSIS FLAG 90 (0-99); MEAN CELL HEMOGLOBIN 30.4 pg (27.9-34.1); MEAN CELL HEMOGLOBIN CONCENTR. 34.4 g/dL (32.4-36.7); MEAN CELL VOLUME 88.6 fL (81.5-99.8); MEAN PLATELET VOLUME 9.4 fL (8.7-11.7); PLATELET CLUMPS FLAG 20 (0-99); PLATELET COUNT 93 10^3/uL (150-400); RED BLOOD CELL COUNT 5.16 10^6/uL (4.40-6.38); RED CELL DISTRIBUTION WIDTH 14.3 % (11.5-15.2)
[2016-07-30] MEDS ORDERED: ACETAMINOPHEN 325 MG TAB PO ONE (16:49)
[2016-07-30] MEDS ORDERED: NS 1,000 ML IV ONE (16:49)
[2016-07-30] MEDS ORDERED: ERTAPENEM 1 GM in NS 100 ML IV ONE (16:59)
[2016-07-30 17:02] LABS: ANION GAP 18 mEq/L (8-16); CARBON DIOXIDE 22 mEq/l (22-31); CHLORIDE 101 mEq/L (97-110); CREATININE 1.2 mg/dL (0.7-1.3); GLOMERULAR FILTRATION RATE 60; GLUCOSE 161 mg/dL (70-100); POTASSIUM 4.4 mEq/L (3.5-5.2); SODIUM 141 mEq/L (134-144)
[2016-07-30] MEDS ORDERED: NS 3,000 ML IV ONE (17:16)
[2016-07-30 17:20] LABS: COLOR AMBER; LEUKOCYTE ESTERASE,URINE NEGATIVE (NEGATIVE); NITRITE,URINE NEGATIVE (NEGATIVE)
[2016-07-30 17:24] LABS: C-REACTIVE PROTEIN 186.8 mg/L (<10.0)
[2016-07-30 17:32] LABS: SEDIMENTATION RATE 92 MM/HR (0-20)
[2016-07-30] MEDS ORDERED: VANCOMYCIN HCL/NORMAL SALINE 250 ML IV ONE (17:42)
--- NOTE | 2016-07-30 17:43 | CPEKG ---
Heart Rate: 91 RR Interval: 659 P-R Interval: 156 QRSD Interval: 88 QT Interval: 352 QTC Interval: 434 P [place]: 56 QRS [place]: -32 T Wave [place]: 53 EKG Severity - OTHERWISE NORMAL ECG - EKG Impression: SINUS RHYTHM EKG Impression: LEFT AXIS DEVIATION Electronically Signed By: Fanta Mckenzie 31-Jul-2016 00:05:51
[2016-07-30 17:45] LABS: INR 1.16 (0.83-1.16); PROTIME(PATIENT) 14.8 SEC (12.0-15.0)
[2016-07-30 17:46] LABS: APTT 31.2 SEC (23.0-38.0)
[2016-07-30 18:28] LABS: ALANINE AMINOTRANSFERASE 37 IU/L (21-72); ALBUMIN 5.1 g/dL (3.5-5.0); ALKALINE PHOSPHATASE 86 IU/L (38-126); ASPARTATE AMINOTRANSFERASE 36 IU/L (17-59); BILIRUBIN,TOTAL 1.8 mg/dL (0.1-1.4); BILIRUBIN-CONJUGATED 0.4 mg/dL (0.0-0.5); BILIRUBIN-UNCONJUGATED 1.4 mg/dL (0.0-1.1); TOTAL PROTEIN 8.8 g/dL (6.3-8.2)
[2016-07-30] MEDS ORDERED: IOPAMIDOL (ISOVUE-300) 100 ML BTL IV ONE (18:29)
[2016-07-30] MEDS ORDERED: HYDROmorphONE/DILAUDID 1 MG/ML SYR IVP ONE (19:10)
--- NOTE | 2016-07-30 22:39 | GHP ---
[f rep st] HISTORY AND PHYSICAL DATE OF ADMISSION: 07/30/2016 CHIEF COMPLAINT: Right hip pain, fevers and chills. HISTORY OF PRESENT ILLNESS: This is a 71-year-old male, who has an L3 through 5 laminectomy, by Dr. Rizo, due to acute onset of leg weakness on June 14, 2016. He tolerated this procedure well and has regained his strength in his legs and has no complaints of loss of bowel or bladder control or other pain, numbness, tingling, or weakness in his legs. The patient states that last night , he began having acute severe right-sided hip pain that went further down his leg. His states that he also began running a slight fever and had chills as well. These chills and fever continued this morning. The patient states that he has had horrible hip pain that is worse with any movement. The patient' s stated that he went to Dr. Lara's office today where he had a temperature of 101 degrees and sent him here for further workup. On my evaluation today in the emergency room, the patient denies saddle anesthesia and he denied any numbness, tingling or pain in his legs. REVIEW OF SYSTEMS: All pertinent positive and negative review of systems are as stated in the HPI. PAST MEDICAL HISTORY: Significant for cardiac disease, and patient does have a pacemaker. Significant for bilateral knee replacements, type 2 diabetes, hypertension, and sciatica. PAST SURGICAL HISTORY: Two bilateral knee replacements, left big toe surgery, pacemaker placement, and a laminectomy by Dr. Rizo approximately 6 weeks ago, on June 14, 2016. SOCIAL HISTORY: Patient is a former smoker. His is at his bedside today. ALLERGIES: Significant for venom from wasps. PHYSICAL EXAMINATION: VITAL SIGNS: Blood pressure 115/76, heart rate 82, respiratory rate 16, O2 saturation is 94% on 2 L by nasal cannula. Temperature 38.5. GENERAL: The patient is a well-developed, well-nourished male, in no acute distress. HEENT: Head is normocephalic, atraumatic. Eyes: Pupils are equal, react to light and accommodation. Extraocular muscles are intact. RESPIRATORY: Patient has a normal work of breathing. ABDOMEN: There is no guarding. Soft and supple. CARDIOVASCULAR: Patient is well perfused with no cyanosis noted. NEURO: Cranial nerves 2-12 are grossly intact. Patient is conversing appropriately. Tongue protrusion is midline. Facial sensation is intact. Sensory muscles are 5/5 and equal in strength. Motor: Bilateral upper extremities are 5/5 and equal in strength. Deltoid, biceps, triceps, wrist extensors and flexors, interossei and pin machine tender and sensation is intact to light touch. Bilateral lower extremities are 5/5 and equal in strength to all muscle groups including his quadriceps, hamstrings, dorsiflexion, plantar flexion, and EHL. The patient does elicit pain when trying to move his right leg due to pain in his hip. Other reflexes negative for clonus, Babinski. Deep tendon reflexes are 2+ bilaterally in the patellar and Achilles. MUSCULOSKELETAL: Patient is tender to palpation over the right hip and SI joint area. LABORATORY DATA: White blood cell count 14.8, red blood cell count 5.16, hemoglobin 15.7, hematocrit 45.7, platelets are 93, neutrophils are 85.9, absolute neutrophils 12.72. ESR 92. Chemistry: Sodium 141, potassium 4.4, chloride 101, carbon dioxide 22, anion gap 18, BUN 22, creatinine 1.2. Glucose 161. CRP 186.8. Urine is rossana-color, pH is 7.0, protein is 2+, RBCs are 3-5. Urine culture indicated. PT 14.8, INR 1.16, APTT 31.2. Microbiology: Blood cultures and urine culture are pending. Patient had a lumbar CT with and without contrast, which shows: 1. Postoperative changes from L3-4 to L5-S1 with posterior decompressive laminectomy with good decompression of the canal. 2. Residual multilevel canal stenosis above the operative level. 3. No convincing evidence of postoperative abscess or osteomyelitis. The patient had a pelvic CT with and without contrast that shows pelvis negative for acute abnormality with no fever source identified. ASSESSMENT/PLAN: This is a 71-year-old gentleman, who had a prior history of an L3-5 laminectomy recently on June [address] Rizo. He has recovered well from this surgery and has regained strength in his legs. He comes in today with an acute onset of right-sided hip pain, as well as complaints of fever, chills, rigors, loss of appetite, and has really no back pain, but does have right hip pain, which is reproducible on palpation in this area. CT scan of the pelvis and lumbar do not show any concerning signs for fluid collection or other compressive abscess at this time. The patient does, however, have an elevated white count, as well as elevated CRP and ESR. At this time, the patient's neuro exam remains intact in his bilateral lower extremities, and has no signs of loss of bowel or bladder control. At this time, it does not seem that his infectious signs are coming from his recent surgical site; however, we will continue to follow his exam and his culture should there be any change. The patient will be admitted to the medicine service and they will continue to follow his cultures, as well as any other further imaging until a source is identified. We will watch the patient. He will be admitted to the floor and the patient will continue to work with Physical Therapy and Occupational Therapy. His pain will be optimized on medications. Neurosurgery Services saw this patient in the emergency room at approximately 5:30 p.m. Patient was seen by Dr. Hendrix and myself, and Neurosurgery Service will continue to follow this patient. Thank you for the consultation. /[id number]/MODL MTDD
[2016-07-31] MEDS ORDERED: ONDANSETRON 4 MG/2 ML VIAL IVP PRN
[2016-07-31] MEDS ORDERED: ONDANSETRON DISINTEGRATING 4 MG TAB PO PRN
[2016-07-31] MEDS ORDERED: NS 1,000 ML IV SCH
[2016-07-31] MEDS ORDERED: HYDROmorphONE/DILAUDID 1 MG/ML SYR IVP PRN
[2016-07-31] MEDS ORDERED: D50W 25 GM/50 ML SYR IVP PRN (02:16)
--- NOTE | 2016-07-31 02:25 | PDGENHP ---
History and Physical - Chief Complaint fever, R hip pain - History of Present Illness Patient was seen and evaluated on 07/30/2016. Patient is a 71-year-old male with a history of dm 2, hypertension, hyperlipidemia, GERD and degenerative disc disease of the L-spine, who underwent lumbar laminectomy on 06/14/2016 who presents to the ED with complaint fever and significant right hip pain. the patient states his symptoms started on the evening of 07/29 with generalized malaise and subjective fever. The following day he continued to feel generally unwell, a generalized fatigue and was developing significant right hip pain. Denies any associated vomiting, but had some nausea and decreased p.o. intake. he went to his PMD's office with these symptoms and he was noted to be febrile to 101.1F. Given this and his symptoms he was sent to the ED for further evaluation. He denies any recent travel or sick contacts, also denies any chest pain, cough, congestion, shortness of breath, vomiting, diarrhea or dysuria. He does report a mild headache but denies any neck pain or midline back pain. on arrival to the ED patient was febrile to 38.5, but hemodynamically stable saturating well on room air. Labs revealed leukocytosis, significantly elevated CRP and ESR and elevated lactate 3.3. He was treated with the sepsis protocol with IV fluid bolus, was cultured and initiated on IV antibiotics. CT of his L spine and pelvis were then obtained given his recent neurosurgical procedure. The studies showed post-operative changes, but were negative for any obvious abscess or osteomyelitis in the pelvis or sacrum. History Information - Allergies/Home Medication List Allergies/Adverse Reactions: venom-wasp [Wasp Venom] Allergy (Intermediate, Verified 07/30/16 15:58) Home Medications: Cholecalciferol (Vitamin D3) [Vitamin D-3] 2,000 unit PO BID 12/03/11 [Last Taken 07/29/16] Hydrochlorothiazide [HCTZ (*)] 25 mg PO HS 12/03/11 [Last Taken 07/29/16] Metoprolol Tartrate [Lopressor 50 mg (*)] 50 mg PO BIDMEAL 06/12/16 [Last Taken 07/30/16 08:00] Potassium Citrate [Potassium Citrate ER] 20 meq PO TID 06/12/16 [Last Taken 08:00] Valsartan [Diovan] 320 mg PO DAILY@1200 06/12/16 [Last Taken 07/29/16] amLODIPine BESYLATE [Amlodipine Besylate] 10 mg PO DAILY 06/12/16 [Last Taken 08:00] Allopurinol [Allopurinol 300 MG (RX)] 300 mg PO HS 07/30/16 [Last Taken 07/29/16 ] Aspirin EC [Aspirin EC 81 mg (*)] 81 mg PO DAILY 07/30/16 [Last Taken 07/30/16 08:00] Atorvastatin Calcium [Lipitor 40 mg (*)] 40 mg PO DAILY@1800 07/30/16 [Last Taken 07/29/16] Gabapentin [Neurontin 300 MG (*)] 300 mg PO TID 07/30/16 [Last Taken 07/30/16 08 :00] Herbals/Supplements -Info Only 1 ea PO AD 07/30/16 [Last Taken Unknown] Niacin ER [Niaspan 500 mg (*)] 500 mg PO BIDMEAL 07/30/16 [Last Taken 07/29/16] Omeprazole [Prilosec 20 mg] 20 mg PO Q2D@1800 07/30/16 [Last Taken 07/29/16 18: 00] Psyllium Husk (with Sugar) [Metamucil Packet] 1 pkt PO HS 07/30/16 [Last Taken 07/28/16] Vit A/Vit C/Vit E/Zinc/Copper [I-Caps Areds Softgel] 1 each PO BID@1200,1800 [Last Taken 07/29/16] Vitamin B Complex [B Complex] 1 each PO DAILY@1800 07/30/16 [Last Taken 07/29/16 ] buPROPion XL [Wellbutrin Xl] 150 mg PO DAILY 07/30/16 [Last Taken 07/30/16] I have personally reviewed and updated: family history, medical history, social history, surgical history - Past Medical History Additional medical history: Hyperlipidemia. Hypertension. GERD. DM2 on oral meds only. Degenerative disc disease of L spine - Surgical History Additional surgical history: L4-L5 Laminectomy. R knee surgery - Family History Positive for: non-pertinent - Social History Smoking Status: Never smoked Alcohol Use: None Drug Use: None Additional social history: Patient lives with his , ambulates with a cane Review of Systems ROS: 10pt was reviewed & negative except for what was stated in HPI & below Physical Exam Temp Pulse Resp BP Pulse Ox 37.2 C 98 20 141/75 H 93 07/30/16 23:28 07/30/16 23:28 07/30/16 23:28 07/30/16 23:28 07/30/16 23:28 O2 (L/minute) 4 Constitutional: no apparent distress, appears nourished, obese, uncomfortable Eyes: PERRL, anicteric sclera, EOMI Ears, Nose, Mouth, Throat: hearing normal, ears appear normal, no oral mucosal ulcers, dry mucous membranes Cardiovascular: regular rate and rhythym, no murmur, rub, or gallop, pulses symmetric bilaterally, No JVD, No edema Peripheral Pulses: 2+: dorsalis-pedis (R), dorsalis-pedis (L) Respiratory: no respiratory distress, no rales or rhonchi, clear to auscultation Gastrointestinal: normoactive bowel sounds, soft, non-tender abdomen, No tenderness, No guarding, No rebound Genitourinary: no bladder fullness, no bladder tenderness Skin: warm, normal color, no rashes or abrasions, no fluctuance, no induration, other (midline lumbar surgical incision clean, well healed, without significant erythema), No mottled, No erythema, No induration, No pressure ulcer Musculoskeletal: full muscle strength, normal joint ROM, no joint effusions, other (no midline spinal tenderness; significant tenderness to palpation of R posterior hip; no anterior or bursa tenderness, ) Neurologic: AAOx3, sensation intact bilaterally, CN II-XII Intact, No weakness, No numbness Psychiatric: interacting appropriately, not anxious, not encephalopathic, thought process linear Lab Data & Imaging Review 07/30/16 16:28 07/30/16 16:28 WBC 14.81 10^3/uL (3.80-9.50) H 07/30/16 16:28 RBC 5.16 10^6/uL (4.40-6.38) 07/30/16 16:28 Hgb 15.7 g/dL (13.7-17.5) 07/30/16 16:28 Hct 45.7 % (40.0-51.0) 07/30/16 16:28 MCV 88.6 fL (81.5-99.8) 07/30/16 16:28 MCH 30.4 pg (27.9-34.1) 07/30/16 16: MCHC 34.4 g/dL (32.4-36.7) 07/30/16 16:28 RDW 14.3 % (11.5-15.2) 07/30/16 16:28 Plt Count 93 10^3/uL (150-400) L 07/30/16 16:28 MPV 9.4 fL (8.7-11.7) 07/30/16 16:28 Neut % (Auto) 85.9 % (39.3-74.2) H 07/30/16 16: Lymph % (Auto) 5.7 % (15.0-45.0) L 07/30/16 16: [place] % (Auto) 7.6 % (4.5-13.0) 07/30/16 16:28 Eos % (Auto) 0.1 % (0.6-7.6) L 07/30/16 16: Baso % (Auto) 0.2 % (0.3-1.7) L 07/30/16 16: Nucleat RBC Rel Count 0.0 % (0.0-0.2) 07/30/16 16:28 Absolute Neuts (auto) 12.72 10^3/uL (1.70-6.50) H 07/30/16 16:28 Absolute Lymphs (auto) 0.84 10^3/uL (1.00-3.00) L 07/30/16 16:28 Absolute Monos (auto) 1.13 10^3/uL (0.30-0.80) H 07/30/16 16:28 Absolute Eos (auto) 0.01 10^3/uL (0.03-0.40) L 07/30/16 16:28 Absolute Basos (auto) 0.03 10^3/uL (0.02-0.10) 07/30/16 16:28 Absolute Nucleated RBC 0.00 10^3/uL (0-0.01) 07/30/16 16:28 Immature Gran % 0.5 % (0.0-1.1) 07/30/16 16:28 Immature Gran # 0.08 10^3/uL (0.00-0.10) 07/30/16 16:28 ESR 92 MM/HR (0-20) H 07/30/16 16:28 PT 14.8 SEC (12.0-15.0) 07/30/16 16:28 INR 1.16 (0.83-1.16) 07/30/16 16:28 APTT 31.2 SEC (23.0-38.0) 07/30/16 16:28 VBG Lactic Acid 1.6 mmol/L (0.7-2.1) D 07/30/16 18:06 Sodium 141 mEq/L (134-144) 07/30/16 16:28 Potassium 4.4 mEq/L (3.5-5.2) 07/30/16 16:28 Chloride 101 mEq/L (97-110) 07/30/16 16:28 Carbon Dioxide 22 mEq/l (22-31) 07/30/16 16:28 Anion Gap 18 mEq/L (8-16) H 07/30/16 16:28 BUN 22 mg/dL (7-23) 07/30/16 16:28 Creatinine 1.2 mg/dL (0.7-1.3) 07/30/16 16:28 Estimated GFR 60 07/30/16 16:28 Glucose 161 mg/dL (70-100) H 07/30/16 16:28 Calcium 10.0 mg/dL (8.5-10.4) 07/30/16 16:28 Total Bilirubin 1.8 mg/dL (0.1-1.4) H 07/30/16 16:38 Conjugated Bilirubin 0.4 mg/dL (0.0-0.5) 07/30/16 16:38 Unconjugated Bilirubin 1.4 mg/dL (0.0-1.1) H 07/30/16 16:38 AST 36 IU/L (17-59) 07/30/16 16:38 ALT 37 IU/L (21-72) 07/30/16 16:38 Alkaline Phosphatase 86 IU/L (38-126) 07/30/16 16:38 C-Reactive Protein 186.8 mg/L (<10.0) H 07/30/16 16:28 Total Protein 8.8 g/dL (6.3-8.2) H 07/30/16 16:38 Albumin 5.1 g/dL (3.5-5.0) H 07/30/16 16:38 Urine Color DENISA 07/30/16 16:53 Urine Appearance HAZY 07/30/16 16:53 Urine pH 7.0 (5.0-7.5) 07/30/16 16:53 Ur Specific [place] 1.023 (1.002-1.030) 07/30/16 16:53 Urine Protein 2+ (NEGATIVE) H 07/30/16 16:53 Urine Ketones NEGATIVE (NEGATIVE) 07/30/16 16:53 Urine Blood NEGATIVE (NEGATIVE) 07/30/16 16:53 Urine Nitrate NEGATIVE (NEGATIVE) 07/30/16 16:53 Urine Bilirubin NEGATIVE (NEGATIVE) 07/30/16 16:53 Urine Urobilinogen NEGATIVE EU (0.2-1.0) 07/30/16 16:53 Ur Leukocyte Esterase NEGATIVE (NEGATIVE) 07/30/16 16:53 Urine RBC 3-5 /hpf (0-3) H 07/30/16 16:53 Urine WBC 1-3 /hpf (0-3) 07/30/16 16:53 Ur Epithelial Cells TRACE /lpf (NONE-1+) 07/30/16 16:53 Ur Culture Indicated? NOT INDICATED (NI) 07/30/16 16:53 Urine Glucose 1+ (NEGATIVE) H 07/30/16 16:53 Influenza Typ A,B (DFA) NEGATIVE FOR FLU (NEGATIVE) 07/30/16 18:10 Visualized and Interpreted Chest x-ray results: Yes Chest X-Ray results: no infiltrate, normal Visualized and Interpreted imaging results: Yes Interpretation: CT L-spine/pelvis: post-surgical changes without evidence of osteomyelitis or spinal abscess Visualized and Interpreted EKG results: Yes EKG Interpretation: Positive for: normal sinsus rhythm Assessment & Plan Assessment: The patient is a 71-year-old male with a history hypertension, hyperlipidemia, dm 2, GERD lumbar disc disease S/P laminectomy about 6 weeks ago who presents to the ED with acute right hip pain as well as fever and generalized malaise. ED evaluation reveals severe sepsis with source of infection not yet identified. Plan: # severe sepsis Patient with fever, leukocytosis, elevated lactic acidosis consistent with severe sepsis, although source has not yet been identified. CXR, UA and rapid flu swab are negative. Given recent spinal surgery, concern was for spinal osteomyelitis versus abscess, however CT imaging did not show evidence of this ( patient cannot receive MRI due to pacemaker). Patient denies any neck pain and has no meningeal signs on exam, but is complaining of headache. Given no other obvious source of localizing infectious symptoms, will order IR-guided LP as well as ID consult - cont Vanc, ertapenem empirically - cont IV NS hydration - trend lactic acid, CBC - f/u ID consult - f/u blood cultures # chronic Hypertension BP stable on presentation. Given severe sepsis, will consider holding some of his antihypertensives. # DM2 Blood glucose slightly elevated on BMP, will hold oral hypoglycemics and place on sliding scale coverage. # HLD Cont statin # GERD Cont ppi # dispo: admit to inpatient service for likely > 2 [place] stay # gen: NPO after midnight, for possible LP DVT ppx: lovenox Full code
[2016-07-31] MEDS ORDERED: Herbals/Supplements -Info Only PO SCH (02:30)
[2016-07-31] MEDS: ACETAMINOPHEN 325 MG TAB PO PRN ×3 (04:16→15:51)
[2016-07-31] MEDS: oxyCODONE IR 5 MG TAB PO PRN ×5 (04:21→23:19)
[2016-07-31 05:22] LABS: % IMMATURE GRANULYOCYTES 0.6 % (0.0-1.1); ABSOLUTE IMMATURE GRANULOCYTES 0.06 10^3/uL (0.00-0.10); ADD DIFF? NO; ADD MORPH? NO; ADD SCAN? NO; ATYPICAL LYMPHOCYTE FLAG 0 (0-99); FRAGMENT RBC FLAG 0 (0-99); HEMATOCRIT 38.9 % (40.0-51.0); HEMOGLOBIN 13.2 g/dL (13.7-17.5); LEFT SHIFT FLG 0 (0-99); LIPEMIA HEMOLYSIS FLAG 90 (0-99); MEAN CELL HEMOGLOBIN 29.4 pg (27.9-34.1); MEAN CELL HEMOGLOBIN CONCENTR. 33.9 g/dL (32.4-36.7); MEAN CELL VOLUME 86.6 fL (81.5-99.8); MEAN PLATELET VOLUME 9.2 fL (8.7-11.7); PLATELET CLUMPS FLAG 0 (0-99); PLATELET COUNT 84 10^3/uL (150-400); RED BLOOD CELL COUNT 4.49 10^6/uL (4.40-6.38); RED CELL DISTRIBUTION WIDTH 14.1 % (11.5-15.2)
[2016-07-31 05:27] LABS: INR 1.25 (0.83-1.16); PROTIME(PATIENT) 15.7 SEC (12.0-15.0)
[2016-07-31 05:28] LABS: ALANINE AMINOTRANSFERASE 35 IU/L (21-72); ALBUMIN 4.3 g/dL (3.5-5.0); ALKALINE PHOSPHATASE 73 IU/L (38-126); ANION GAP 15 mEq/L (8-16); ASPARTATE AMINOTRANSFERASE 27 IU/L (17-59); BILIRUBIN,TOTAL 1.7 mg/dL (0.1-1.4); CALCIUM 9.2 mg/dL (8.5-10.4); CARBON DIOXIDE 19 mEq/l (22-31); CHLORIDE 106 mEq/L (97-110); CREATININE 1.1 mg/dL (0.7-1.3); GLOMERULAR FILTRATION RATE > 60; GLUCOSE 163 mg/dL (70-100); MAGNESIUM 1.6 mg/dL (1.6-2.3); POTASSIUM 3.9 mEq/L (3.5-5.2); SODIUM 140 mEq/L (134-144); TOTAL PROTEIN 7.4 g/dL (6.3-8.2)
[2016-07-31 05:49] LABS: SEDIMENTATION RATE 36 MM/HR (0-20)
[2016-07-31 06:04] LABS: C-REACTIVE PROTEIN 222.8 mg/L (<10.0)
[2016-07-31] MEDS: VANCOMYCIN 1.25 GM in D5W 250 ML IV SCH ×2 (06:18→18:21)
--- NOTE | 2016-07-31 08:27 | NEUSURGPN ---
Assessment/Plan: 71 yo male with hx of lumbar laminectomy L3-5 on 06/14/[address] Rizo. Presented to the ER with fever, chills, leukocytosis, increased inflammatory markers and right hip pain X 1 day. Concern for possible fluid collection/ abscess. -Overall pain somehwat improved this morning, still had fever/chills last night. No weakness in legs -CT wo contrast shows no concerning signs for osteomyelitis or fluid collection at this point. Unable to get MRI due to pacemaker -Still unsure of source, medicine and ID seeing as well and may do LP to rule out meningitis although patient has no positive meningeal signs- does have headaches -Blood cultures pending -On abx per medicine/ID -WBC count down to 10 today from 14 -PT/OT -Will continue to follow -Discussed with Dr. Hendrix - Subjective: Patient states his pain is somewhat improved this morning but did have more pain medicine this am. Denies weakness, pain in his legs. Did have some chills and felt feverish overnight. Objective: NAD, VSS BUE/BLE 5/5= Non TTP over right SI joint/hip this am Sensation intact to lt touch Incision, clean, dry, intact, non-tender, no erythema - Physician Discussed Patient with Dr.: Hendrix Neurosurgery Physical Exam - Vitals, I&O, Labs I and O 07/30/16 07/31/16 08/01/16 05:59 05:59 05:59 Intake Total 3000 Output Total 850 Balance 2150 Weight 99.79 kg Intake: IV Infused (ml) 3000 Output: Urine (ml) 850 Urinal 850 Vital Signs Temp Pulse Resp BP Pulse Ox 37.0 C 100 20 144/80 H 94 07/31/16 04:27 07/31/16 04:27 07/31/16 04:27 07/31/16 04:27 07/31/16 04:27 Laboratory Results 07/31/16 05:01 07/31/16 05:01 ICD10 Worksheet Patient Problems: Problems Problem Status Onset Fever Acute Right hip pain Acute Severe sepsis Acute Low back pain Acute MRSA (methicillin resistant Staphylococcus aureus) Acute 06/28/15
--- NOTE | 2016-07-31 08:53 | SOAPPROG ---
SOAP Progress Note Assessment/Plan: Assessment: Fever, unknown source. Tender R greater trochanter bursa. Blood culture positive, final pending. Plan: Infection with unknown source. Will do US of R greater trochanter, echo of heart. continue with IV antibiotics. I see no indication for LP at this time. 07/31/16 08:52 Subjective: CO mild headache. No neck stiffness. Increased appetite today. Objective: Vital Signs Temp Pulse Resp BP Pulse Ox 37.0 C 100 20 144/80 H 94 07/31/16 04:27 07/31/16 04:27 07/31/16 04:27 07/31/16 04:27 07/31/16 04:27 Laboratory Results 07/31/16 05:01 07/31/16 05:01 07/30/16 07/31/16 08/01/16 05:59 05:59 05:59 Intake Total 3000 Output Total 850 Balance 2150 PT 15.7 SEC (12.0-15.0) H 07/31/16 05:01 INR 1.25 (0.83-1.16) H 07/31/16 05:01 ABD non-tender. Lungs clear to asc. COR RRR, no apparent murmur. Very tender over R greater trochanter bursae. no spinal tenderness. Surgical incision looks good. ICD10 Worksheet Patient Problems: Problems Problem Status Onset Fever Acute Right hip pain Acute Severe sepsis Acute Low back pain Acute MRSA (methicillin resistant Staphylococcus aureus) Acute 06/28/15
[2016-07-31] MEDS ORDERED: ERTAPENEM 1 GM in NS 100 ML IV SCH (09:00)
[2016-07-31] MEDS: NIACIN ER 500 MG TAB.ER PO SCH ×2 (10:10→18:21)
[2016-07-31] MEDS: METOPROLOL TARTRATE 50 MG TAB PO SCH ×2 (10:10→18:20)
[2016-07-31] MEDS: GABAPENTIN 300 MG CAP PO SCH ×3 (10:11→21:38)
[2016-07-31] MEDS: ASPIRIN EC 81 MG TAB PO SCH (10:12)
[2016-07-31] MEDS: buPROPion XL 150 MG TAB PO SCH (10:12)
[2016-07-31] MEDS: CHOLECALCIFEROL VIT D3 1,000 UNITS TAB PO SCH ×2 (10:12→20:25)
[2016-07-31] MEDS: ENOXAPARIN 40 MG/0.4 ML SYR SC SCH (10:13)
--- NOTE | 2016-07-31 10:54 | ECHO ---
[id number] + + [address] : : [place] [address] : : [phone] + + Adult Echocardiographic Report + -+ :Name: RASHAUN KAPADIA Tristin Date: 07/31/2016 09:15 AM BP: 119/79 mmHg : : Hospital Admission Number: [id number] Location: 1: :: 1945 Gender: Male Height: 71 in : :Age: 71 yrs Race: WH,White Weight: 220 lb : :Reason For Study: R/O endocarditis : : BSA: 2.2 meters2 : :History: fever; elevated WBC; + cultures : + -+ MMode/2D Measurements \T\ Calculations IVSd: 1.2 cm LVIDd: 3.8 cm FS: 30.1 % Ao root diam: 3.3 cm LVPWd: 1.1 cm LVIDs: 2.7 cm EDV(Teich): 62.4 ml ESV(Teich): 26.2 ml EF(Teich): 58.1 % Normal Measurement Values: + + :LVIDd (3.5-5.7cm) IVSd (0.6-1.1cm) LVPWd (0.6-1.1cm) Aortic Root (2.0-3.7cm)Left Atrium (1.5-4.0cm): :LV Vol(d) (76-115ml) LV Vol(s) (29-48ml) Ejec Fraction (50-65%)PV Boaz (0.6- 1.2m/s) TV Boaz (0.4-1.0m/s) : :MV E Boaz (0.8-1.0m/s)MV A Boaz (0.3-1.0m/s)LVOT Boaz (0.7-1.2m/s) Asc Ao Boaz ( 0.9-1.8m/s) : + + Doppler Measurements \T\ Calculations MV E max boaz: Ao V2 max: LV V1 max: PA V2 max: 96.4 cm/sec 156.1 cm/sec 119.9 cm/sec 104.5 cm/sec MV A max boaz: Ao max PG: LV V1 max PG: PA max P.1 cm/sec 9.7 mmHg 5.8 mmHg 4.4 mmHg MV E/A: 0.82 MV dec time: 0.21 sec Left Ventricle The left ventricle is normal in size and function. There is mild concentric left ventricular hypertrophy. Ejection Fraction = 60%. No regional wall motion abnormalities noted. Right Ventricle The right ventricle is normal in size and function. There is a pacemaker lead in the right ventricle. Atria The left atrial size is normal. Right atrial size is normal. Mitral Valve There is mild mitral annular calcification. A vegetation on the mitral valve cannot be excluded. There is no mitral valve stenosis. There is trace mitral regurgitation. Tricuspid Valve The tricuspid valve is not well visualized. A tricuspid valve vegetation cannot be excluded. There is no tricuspid stenosis. There is trace tricuspid regurgitation. Aortic Valve The aortic valve is not well visualized. Cannot exclude aortic valvular vegetation. There is no aortic stenosis. There is no aortic insufficiency. Pulmonic Valve The pulmonic valve is not well visualized. There is no pulmonic valvular regurgitation. Great Vessels The aortic root is normal size. Pericardium/Pleural There is no pericardial effusion. Conclusion The study was technically difficult. Due to poor visualization of the heart valves cannot rule out endocarditis. If clinically indicated suggest transesophegeal echocardiogram. The left ventricle is normal in size and function. There is mild concentric left ventricular hypertrophy. Ejection Fraction = 60%. There is trace mitral regurgitation. There is trace tricuspid regurgitation. The aortic valve is not well visualized. Cannot exclude aortic valvular vegetation. Final Reading Physician: Sendy Price signed on 07/31/2016 10:53 AM Ordering Physician: Chad Lara Performed By: Karine Perez
[2016-07-31] MEDS: INSULIN LISPRO 100 UNIT/ML SC SCH ×3 (11:23→18:20)
[2016-07-31] MEDS: PRESERVISION AREDS2 FORMULA EYE VIT 1 EACH PO SCH ×2 (12:58→18:20)
[2016-07-31] MEDS: VALSARTAN 160 MG TAB PO SCH (13:11)
[2016-07-31] MEDS: ATORVASTATIN CALCIUM 40 MG TAB PO SCH (18:20)
[2016-07-31] MEDS: PANTOPRAZOLE SODIUM 40 MG TAB PO SCH (18:21)
[2016-07-31] MEDS: VITAMIN B COMPLEX 1 EA CAP/TAB PO SCH (18:21)
--- NOTE | 2016-07-31 19:08 | SOAPPROG ---
SOAP Progress Note Assessment/Plan: Assessment: Fever, unknown source. Tender R greater trochanter bursa. Blood culture positive, final pending. Positive blood culture for enterococcus. Plan: Will recheck blood culture to see if bacteremia is persistent. 07/31/16 08:52 07/31/16 19:07 Objective: Vital Signs Temp Pulse Resp BP Pulse Ox 36.7 C 83 15 144/78 H 91 L 07/31/16 11:37 07/31/16 18:20 07/31/16 11:37 07/31/16 18:20 07/31/16 11:37 Laboratory Results 07/31/16 05:01 07/31/16 05:01 07/30/16 07/31/16 08/01/16 05:59 05:59 05:59 Intake Total 3000 450 Output Total 850 150 Balance 2150 300 PT 15.7 SEC (12.0-15.0) H 07/31/16 05:01 INR 1.25 (0.83-1.16) H 07/31/16 05:01 Blood culture positive for enterococcus. ICD10 Worksheet Patient Problems: Problems Problem Status Onset Fever Acute Right hip pain Acute Severe sepsis Acute Low back pain Acute MRSA (methicillin resistant Staphylococcus aureus) Acute 06/28/15
[2016-07-31] MEDS: PSYLLIUM METAMUCIL 1 PKT PO SCH (20:26)
--- NOTE | 2016-07-31 22:52 | GCON ---
[f rep st] CONSULTATION INFECTIOUS DISEASE CONSULTATION DATE OF CONSULTATION: 07/31/2016 REFERRING PHYSICIAN: Anais Gustafson MD REASON FOR CONSULTATION: Bacteremia, sepsis for further evaluation and opinion. CHIEF COMPLAINT: Fevers, chills and acute right hip pain. HISTORY OF PRESENT ILLNESS: This 71-year-old, male with a past medical history significant for type 2 diabetes mellitus, hypertension, dyslipidemia, GERD, degenerative joint disease of the lumbar spine. He underwent lumbar laminectomy on June 14, 2016, has done really well postoperatively. He has had no opening of his incision site, redness or drainage or any pain. However on this past Saturday he started to have fevers or shaking chills. He started to develop lack of appetite and then suddenly was having acute pain involving his right hip. Every time he tried to move his hips or walk on it or weight bear he started to have excruciating pain. He has had some headaches intermittently over the last 48 hours. Not associated with any neck stiffness or pain in the neck. He denies any sinus pressure or pain. He denies any nasal drainage, cough, or sputum production. He also denies any nausea, vomiting, abdominal pain, or diarrhea recently as well. He denies any burning with urination or urinary retention. However the last 48 hours, because he has had so much pain in the hip, when he has wanted to urinate he has been unable to get to the bathroom quick enough and therefore has had incontinence. He denies any flank pain or otherwise back pain. Hip pain is localized to the anterior lateral aspect of the right hip. He denies any numbness or tingling down the extremity. He denies any focal weakness involving his lower extremities as well. His fevers went as high as 101. He contacted his primary care doctor, who advised him to come to the ER. Upon evaluation in the ER, his temperature was 38.5. He was found to have a leukocytosis of 14.8 with a left shift. Blood cultures x2 cultures were drawn and they are growing out Enterococcus species so far in 1 of 4 bottles. He had a urinalysis done which appeared unremarkable, without positive nitrates or leuk esterases and no elevated urine WBCs. He was evaluated for the flu which was negative. He underwent a lumbar and pelvis CT which showed no evidence of a fluid collection at his postoperative lumbar site or any changes suggestive of osteomyelitis. He also had a pelvic CT which showed no abnormal fluid collections or enhancement. I reviewed these images with Radiology today and again there is no evidence of joint effusion or any bursal collection or evidence of bursitis present. He also underwent a right hip ultrasound as well , which again did not show evidence of any right greater trochanteric bursa fluid collection. The patient was placed empirically on vancomycin and Invanz yesterday. His white blood cell count did drop down to 10.5. His temperatures have overall improved. The patient continues to have excruciating pain involving the right hip. Infectious Disease is now consulted for further evaluation and opinion. REVIEW OF SYSTEMS: GENERAL: Fevers, shaking chills over the past 48 hours. HEAD: Mild headache without complaints of neck stiffness. EYES: No change in vision. ENT: No sore throat, difficulty swallowing, ear pain or ear drainage. No sinus pain or pressure. No nasal drainage. CARDIOVASCULAR: Denies any chest pain or rapid heartbeat. RESPIRATORY: Denies any shortness of breath, cough or sputum production. ABDOMEN: No nausea, vomiting, abdominal pain, or diarrhea. Only briefly lack of appetite due to current acute illness. : Denies any dysuria, hematuria, urinary retention, flank pain or back pain. Mild incontinence only because he is unable to get to the bathroom quick enough due to right hip pain and lack of use of mobility. MUSCULOSKELETAL: Denies any other joint pains apart from the right hip pain. No muscle pain. SKIN: No other rashes or open wounds. Rest of the 10 point review of systems essentially negative except for above. PAST MEDICAL HISTORY: Significant for hypertension, dyslipidemia, GERD, type 2 diabetes mellitus, DJD of the lumbar spine. PAST SURGICAL HISTORY: Significant for lumbar laminectomy L3-L4, L4-L5 on June 14, 2016 and bilateral knee surgeries. ALLERGIES: No known drug allergies. SOCIAL HISTORY: He is a nonsmoker. Does not drink alcohol. Lives with his . FAMILY HISTORY: Reviewed and found to be noncontributory. PHYSICAL EXAMINATION: VITAL SIGNS: Temperature current 36.7, pulse 85, respiratory rate is 18, blood pressure 126/70, saturations are 91% on room air. GENERAL: Patient is resting in bed in no acute respiratory distress. Awake, alert, oriented x3. HEENT: Eyes: No conjunctival injection or petechiae noted. Oropharynx is clear. There is no posterior erythema or thrush. NECK: Supple. CARDIOVASCULAR: S1, S2. Regular rate and rhythm. Mild 2/6 systolic murmur appreciated. RESPIRATORY: Clear to auscultate bilaterally. No rhonchi or rales appreciated. ABDOMEN: Positive bowel sounds in all quadrants. Soft, nontender, nondistended. Negative Long sign. No organomegaly appreciated. EXTREMITIES: No lower extremity edema. MUSCULOSKELETAL: Pertinent findings with pain on palpation over the right greater trochanter. No joint effusions appreciated. SKIN: No rashes. No open wounds. LABS: White blood cell count 10.5, down from 14.8, hemoglobin 13.2, platelets are 84. Neutrophil count 81%. Coags: INR 1.2. Venous lactic acid on admission 3.3, down to 1.6 now. Sodium 140, potassium 3.9, chloride 106, bicarb is 19, BUN is 15, creatinine is 1.1, glucose is 163, total bilirubin 1.7. AST 27, ALT 35, alkaline phosphatase 73. C-reactive protein 222. TSH 1.8. Albumin 4.3. Urinalysis as stated above. Influenza A and B DFA negative. Blood cultures, 1/4 bottles with Enterococcus species. Urine culture pending. Imaging results have all been reviewed by me and are stated above. ASSESSMENT: 1. Acute Enterococcus sepsis. 2. Acute Right hip pain. PLAN: Etiology or source of Enterococcus is uncertain at this point in time, typically a genitourinary source or gastrointestinal source. No obvious intraabdominal complaints and urinalysis was unremarkable. The patient does have a history of gallstones and has a mild elevated total bilirubin. We will check an ultrasound of the gallbladder to further evaluate for cholecystitis, common bile duct stone, dilation, etc. Reviewed his other imaging with radiology in person. No obvious evidence of bursitis or joint effusion involving the right hip; however given the short duration of symptoms perhaps no readily available evidence at this time. Would recommend a followup imaging with a CT of the right hip or ultrasound to monitor for further evaluation of evolving fluid collection/joint effusion. Also could recommend Orthopedic evaluation as well to better determine whether he should go for a needle aspiration. Again, no obvious evidence of fluid collection or joint effusion at this time, so we will hold off on that. Agree with transthoracic echocardiogram. The patient is currently on vancomycin and Invanz therapy. The vancomycin should cover Enterococcus. For now, his white blood cell count has improved and he is responding to empiric therapy at this time. We will maintain on broad-spectrum antimicrobials for now, especially while gallbladder evaluation is in progress. Hopefully we will be able to tailor down his regimen to directive therapy soon. We will follow up blood cultures in a.m. and those have been ordered. The plan of care was discussed at length with the patient and the at the bedside. Care was reviewed with the radiologist as well. We will coordinate care with his primary care provider as well. I thank you very much for providing me the opportunity to care for your patient in consultation. /[id number]/MODL MTDD
[2016-08-01] MEDS: oxyCODONE IR 5 MG TAB PO PRN ×4 (05:12→20:48)
[2016-08-01 06:17] LABS: % IMMATURE GRANULYOCYTES 0.4 % (0.0-1.1); ABSOLUTE IMMATURE GRANULOCYTES 0.03 10^3/uL (0.00-0.10); ADD DIFF? NO; ADD MORPH? NO; ADD SCAN? NO; ATYPICAL LYMPHOCYTE FLAG 0 (0-99); FRAGMENT RBC FLAG 0 (0-99); HEMATOCRIT 36.3 % (40.0-51.0); HEMOGLOBIN 12.4 g/dL (13.7-17.5); LEFT SHIFT FLG 10 (0-99); LIPEMIA HEMOLYSIS FLAG 90 (0-99); MEAN CELL HEMOGLOBIN 29.8 pg (27.9-34.1); MEAN CELL HEMOGLOBIN CONCENTR. 34.2 g/dL (32.4-36.7); MEAN CELL VOLUME 87.3 fL (81.5-99.8); MEAN PLATELET VOLUME 9.6 fL (8.7-11.7); PLATELET CLUMPS FLAG 10 (0-99); PLATELET COUNT 80 10^3/uL (150-400); RED BLOOD CELL COUNT 4.16 10^6/uL (4.40-6.38)
[2016-08-01 06:36] LABS: ALANINE AMINOTRANSFERASE 41 IU/L (21-72); ALBUMIN 3.9 g/dL (3.5-5.0); ALKALINE PHOSPHATASE 75 IU/L (38-126); ANION GAP 13 mEq/L (8-16); ASPARTATE AMINOTRANSFERASE 32 IU/L (17-59); BILIRUBIN,TOTAL 1.3 mg/dL (0.1-1.4); CALCIUM 8.8 mg/dL (8.5-10.4); CARBON DIOXIDE 18 mEq/l (22-31); CHLORIDE 104 mEq/L (97-110); GLOMERULAR FILTRATION RATE > 60; GLUCOSE 150 mg/dL (70-100); POTASSIUM 3.8 mEq/L (3.5-5.2); SODIUM 135 mEq/L (134-144); TOTAL PROTEIN 7.1 g/dL (6.3-8.2)
[2016-08-01 06:44] LABS: SEDIMENTATION RATE 42 MM/HR (0-20)
[2016-08-01] MEDS: VANCOMYCIN 1.25 GM in D5W 250 ML IV SCH ×2 (07:08→18:34)
--- NOTE | 2016-08-01 08:13 | NEUSURGPN ---
Assessment/Plan: Assessment: 71 yo male with hx of lumbar laminectomy L3-5 on 06/14/[address] Rizo. Presented to the ER with fever, chills, leukocytosis, increased inflammatory markers and right hip pain X 1 day. Plan: -CT showed no fluid collection noted -Overall pain somewhat improved this morning, no fever/chills last night. No weakness in legs. No back pain reported -CT wo contrast shows no concerning signs for osteomyelitis or fluid collection at this point. Unable to get MRI due to pacemaker -Still unsure of source, medicine and ID on board -Blood cultures noted with Enterococcus -On abx per medicine/ID -WBC count down -PT/OT -recommend recheck as scheduled in office/please call NS with any changes or issues Subjective: No new complaints or concerns. No f/c/n/v/d. Objective: NAD, VSS BUE/BLE /= Non TTP over right SI joint/hip this am Sensation intact to lt touch Incision, clean, dry, intact, non-tender, no erythema Neuro Check Frequency: per routine Urinary Catheter in Place: No - Physician Discussed Patient with : [facility] Physical Exam - Vitals, I&O, Labs I and O 07/31/16 08/01/16 08/02/16 05:59 05:59 05:59 Intake Total 3000 650 Output Total 850 375 Balance 2150 275 Weight 99.79 kg Intake: Oral (ml) 650 IV Infused (ml) 3000 Output: Urine (ml) 850 375 Urinal 850 375 Vital Signs Temp Pulse Resp BP Pulse Ox 37.1 C 81 16 126/79 H 92 08/01/16 08:10 08/01/16 08:10 08/01/16 08:10 08/01/16 08:10 08/01/16 08:10 Laboratory Results 08/01/16 05:50 08/01/16 05:50 ICD10 Worksheet Patient Problems: Problems Problem Status Onset Fever Acute Right hip pain Acute Severe sepsis Acute Low back pain Acute MRSA (methicillin resistant Staphylococcus aureus) Acute 06/28/15
[2016-08-01] MEDS: NIACIN ER 500 MG TAB.ER PO SCH ×2 (08:21→18:31)
[2016-08-01] MEDS: METOPROLOL TARTRATE 50 MG TAB PO SCH ×2 (08:21→18:32)
[2016-08-01] MEDS: ACETAMINOPHEN 325 MG TAB PO PRN ×2 (08:28→15:29)
--- NOTE | 2016-08-01 09:07 | SOAPPROG ---
SOAP Progress Note Assessment/Plan: Assessment: Plan: 08/01/16 09:05 enterococcus infection--etiology remains to be elusive. Posterior right hip pain is only new finding. He is walking better with PT. New BC's drawn. Awaiting further developments and ID input CAD/HTN/high chol/DM--all stable prior pacer/defib placement--stable Subjective: He has less pain this am. Appetite is ok. The only area of pain is in the lateral posterior right hip. Moving right leg while sitting is fairly comfortable. He was on cephalexin then amoxicillin for a possible dental issue. This was stopped on July 23. Torus was identified by Dr Laguerre Objective: Vital Signs Temp Pulse Resp BP Pulse Ox 37.1 C 72 16 126/79 H 92 08/01/16 08:10 08/01/16 08:21 08/01/16 08:10 08/01/16 08:21 08/01/16 08:10 Laboratory Results 08/01/16 05:50 08/01/16 05:50 07/31/16 08/01/16 08/02/16 05:59 05:59 05:59 Intake Total 3000 650 Output Total 850 375 Balance 2150 275 PT 15.7 SEC (12.0-15.0) H 07/31/16 05:01 INR 1.25 (0.83-1.16) H 07/31/16 05:01 Gen: NAD, pleasant Lungs: CTAB Heart: RRR 1-2/6 WENDY Abd + bs soft NT Right hip--moderate TTP lateral gluteal region. ROM right hip good without much pain LE's trace edema Knees (both prior TJA) no warmth/effusion Pacer bed unremarkable ICD10 Worksheet Patient Problems: Problems Problem Status Onset Fever Acute Right hip pain Acute Severe sepsis Acute Low back pain Acute MRSA (methicillin resistant Staphylococcus aureus) Acute 06/28/15
[2016-08-01] MEDS: ASPIRIN EC 81 MG TAB PO SCH (09:56)
[2016-08-01] MEDS: CHOLECALCIFEROL VIT D3 1,000 UNITS TAB PO SCH ×2 (09:57→20:48)
[2016-08-01] MEDS: buPROPion XL 150 MG TAB PO SCH (09:57)
[2016-08-01] MEDS: GABAPENTIN 300 MG CAP PO SCH ×3 (09:57→20:48)
[2016-08-01] MEDS: INSULIN LISPRO 100 UNIT/ML SC SCH ×3 (10:01→18:32)
[2016-08-01] MEDS: ENOXAPARIN 40 MG/0.4 ML SYR SC SCH (10:02)
--- NOTE | 2016-08-01 10:38 | PCMIDPN ---
Assessment/Plan: # sepsis on admission due to bacteremia, sepsis now resolved # Enterococcal bacteremia, unclear source. Imaging of lumbar spine, pelvis, right upper quadrant/gallbladder all negative. Echocardiogram was nondiagnostic. CRP 180 --narrow antibiotics to vancomycin alone today, discontinue ertapenem. Vanco T okay, suspect will creep up --monitor blood cultures, tentatively place PICC line on Saturday --likely needs repeat pelvic and lumbar spine imaging in the next week to assure no evolving septic arthritis diskitis or osteomyelitis --SHAGUFTA only if persistently positive blood cultures --duration of therapy not clear at this point, at least 2 weeks. # thrombocytopenia likely due to infection, we will continue to monitor Medications vancomycin 1.2 g IV Q 12, Vanco trough 10 Ertapenem 1 g IV daily, # 2 Microbiology 08/01 blood cultures (2) pending 07/31 blood cultures (2) pending 07/30 blood cultures (2) Enterococcus Subjective: Patient reports better right hip pain. He points to mid buttock region. Complains of multiple blood draws. No diarrhea Objective: Vital Signs Temp Pulse Resp BP Pulse Ox 37.1 C 72 16 110/64 92 08/01/16 08:10 08/01/16 08:21 08/01/16 08:10 08/01/16 09:59 08/01/16 08:10 Laboratory Results 08/01/16 05:50 08/01/16 05:50 07/31/16 08/01/16 08/02/16 05:59 05:59 05:59 Intake Total 3000 650 Output Total 850 375 Balance 2150 275 ESR 42 MM/HR (0-20) H 08/01/16 05:50 C-Reactive Protein 180.0 mg/L (<10.0) H 08/01/16 05:50 - Physical Exam General Appearance: alert, no apparent distress EENT: No scleral icterus, No thrush Respiratory: lungs clear Neck: supple Cardiac/Chest: regular rate, rhythm, systolic murmur (very faint) Abdomen: non-tender, soft Back: normal inspection (lumbar spine incision healed), No spine tenderness Neuro/Psych: alert, normal mood/affect, oriented x 3, other (ambulating about the room) - Time Spent With Patient Time Spent with Patient: greater than 35 minutes (reviewed PICC Line placement, need for IV antibiotics, unknown course of therapy) Time Spent with Patient: Greater than 35 minutes spent on this patients care, greater than 50% of time spent counseling, educating, and coordinating care regarding the above mentioned plan. ICD10 Worksheet Patient Problems: Problems Problem Status Onset Fever Acute Right hip pain Acute Severe sepsis Acute Low back pain Acute MRSA (methicillin resistant Staphylococcus aureus) Acute 06/28/15
[2016-08-01] MEDS: PRESERVISION AREDS2 FORMULA EYE VIT 1 EACH PO SCH ×2 (13:37→18:30)
[2016-08-01] MEDS: VALSARTAN 160 MG TAB PO SCH (13:37)
[2016-08-01] MEDS: ATORVASTATIN CALCIUM 40 MG TAB PO SCH (18:30)
[2016-08-01] MEDS: VITAMIN B COMPLEX 1 EA CAP/TAB PO SCH (18:31)
[2016-08-01] MEDS: PSYLLIUM METAMUCIL 1 PKT PO SCH (20:48)
[2016-08-01] MEDS ORDERED: metFORMIN SR 500 MG TAB PO SCH (22:30)
[2016-08-02] MEDS: oxyCODONE IR 5 MG TAB PO PRN ×7 (00:35→22:17)
[2016-08-02] MEDS: VANCOMYCIN 1.25 GM in D5W 250 ML IV SCH ×2 (06:27→20:27)
--- NOTE | 2016-08-02 08:46 | SOAPPROG ---
SOAP Progress Note Assessment/Plan: Assessment: Plan: 08/01/16 09:05 enterococcus infection--etiology remains to be elusive. Posterior right hip pain is only new finding. He is walking better with PT. New BC's drawn. Awaiting further developments and ID input CAD/HTN/high chol/DM--all stable prior pacer/defib placement--stable 08/02/16 08:44 enterococcus bacteremia--suspect l-spine incision from 06/14 surgery is most likely source. He is slightly warm and erythematous at this region, more than one would normally expect 7 weeks after surgery. Agree with PICC and Vanco and repeated imaging DM--metformin resumed back and hip pain improving Subjective: gradually feeling better with less pain. No new c/o this am Objective: Vital Signs Temp Pulse Resp BP Pulse Ox 37.1 C 82 16 139/69 H 92 08/02/16 07:26 08/02/16 07:26 08/02/16 07:26 08/02/16 07:26 08/02/16 07:26 Laboratory Results 08/01/16 05:50 08/01/16 05:50 08/01/16 08/02/16 08/03/16 05:59 05:59 05:59 Intake Total 650 900 Output Total 375 Balance 275 900 PT 15.7 SEC (12.0-15.0) H 07/31/16 05:01 INR 1.25 (0.83-1.16) H 07/31/16 05:01 Gen: more alert, better color Lungs: CTAB Heart: RRR L-spine incision--mild warmth and erythema right buttock less tender walks more easily le's with trace edema ICD10 Worksheet Patient Problems: Problems Problem Status Onset Fever Acute Right hip pain Acute Severe sepsis Acute Low back pain Acute MRSA (methicillin resistant Staphylococcus aureus) Acute 06/28/15
[2016-08-02] MEDS: ENOXAPARIN 40 MG/0.4 ML SYR SC SCH (09:00)
[2016-08-02] MEDS: metFORMIN SR 500 MG TAB PO SCH (09:31)
[2016-08-02] MEDS: INSULIN LISPRO 100 UNIT/ML SC SCH ×3 (09:31→18:50)
[2016-08-02] MEDS: CHOLECALCIFEROL VIT D3 1,000 UNITS TAB PO SCH ×2 (09:33→20:27)
[2016-08-02] MEDS: GABAPENTIN 300 MG CAP PO SCH ×3 (09:33→20:28)
[2016-08-02] MEDS: NIACIN ER 500 MG TAB.ER PO SCH ×2 (09:33→18:09)
[2016-08-02] MEDS: buPROPion XL 150 MG TAB PO SCH (09:33)
[2016-08-02] MEDS: ASPIRIN EC 81 MG TAB PO SCH (09:34)
[2016-08-02] MEDS: METOPROLOL TARTRATE 50 MG TAB PO SCH ×2 (09:46→18:09)
[2016-08-02] MEDS ORDERED: ALTEPLASE 2 MG VIAL IVP PRN (11:25)
--- NOTE | 2016-08-02 11:34 | PDIAF ---
- Diagnosis Diagnosis: enterococcal bacteremia, sepsis Code Status: Full Code - Medication Management Discharge Medications: Medications to Continue on Transfer Cholecalciferol (Vitamin D3) [Vitamin D-3] 2,000 unit PO BID 12/03/11 [Last Taken 07/29/16] Hydrochlorothiazide [HCTZ (*)] 25 mg PO HS 12/03/11 [Last Taken 07/29/16] Metoprolol Tartrate [Lopressor 50 mg (*)] 50 mg PO BIDMEAL 06/12/16 [Last Taken 07/30/16 08:00] Potassium Citrate [Potassium Citrate ER] 20 meq PO TID 06/12/16 [Last Taken 08:00] Valsartan [Diovan] 320 mg PO DAILY@1200 06/12/16 [Last Taken 07/29/16] amLODIPine BESYLATE [Amlodipine Besylate] 10 mg PO DAILY 06/12/16 [Last Taken 08:00] Allopurinol [Allopurinol 300 MG (RX)] 300 mg PO HS 07/30/16 [Last Taken 07/29/16 ] Aspirin EC [Aspirin EC 81 mg (*)] 81 mg PO DAILY 07/30/16 [Last Taken 07/30/16 08:00] Atorvastatin Calcium [Lipitor 40 mg (*)] 40 mg PO DAILY@1800 07/30/16 [Last Taken 07/29/16] Gabapentin [Neurontin 300 MG (*)] 300 mg PO TID 07/30/16 [Last Taken 07/30/16 08 :00] Herbals/Supplements -Info Only 1 ea PO AD 07/30/16 [Last Taken Unknown] Niacin ER [Niaspan 500 mg (*)] 500 mg PO BIDMEAL 07/30/16 [Last Taken 07/29/16] Omeprazole [Prilosec 20 mg] 20 mg PO Q2D@1800 07/30/16 [Last Taken 07/29/16 18: 00] Psyllium Husk (with Sugar) [Metamucil Packet] 1 pkt PO HS 07/30/16 [Last Taken 07/28/16] Vit A/Vit C/Vit E/Zinc/Copper [I-Caps Areds Softgel] 1 each PO BID@1200,1800 [Last Taken 07/29/16] Vitamin B Complex [B Complex] 1 each PO DAILY@1800 07/30/16 [Last Taken 07/29/16 ] buPROPion XL [Wellbutrin Xl] 150 mg PO DAILY 07/30/16 [Last Taken 07/30/16] Correction Antibiotics: Vancomycin 1.25g IV q 12 hours Manager Produce Antibiotic Stop Date: 08/14/16 Discharge Medications: Refer to the Discharge Home Medication list for PRN reason. PICC Care - Routine: Yes - Orders Services needed: Registered Nurse - Labs/Radiology CBC Date: 08/06/16 (weekly) CMP Date: 08/06/16 (weekly) Vanco Trough Date and Time: 08/06/16 and twice weekly thereafter Q Mon, Thurs Call or Fax Lab and Imaging Results to: Dr. Ruben Lerner - Follow Up Care Current Providers and Referrals: Chad Lara MD [Primary Care Provider] - As per Instructions
[2016-08-02] MEDS: PRESERVISION AREDS2 FORMULA EYE VIT 1 EACH PO SCH ×2 (12:27→18:09)
[2016-08-02] MEDS: VALSARTAN 160 MG TAB PO SCH (12:36)
[2016-08-02] MEDS: VITAMIN B COMPLEX 1 EA CAP/TAB PO SCH (18:09)
[2016-08-02] MEDS: ATORVASTATIN CALCIUM 40 MG TAB PO SCH (18:09)
[2016-08-02] MEDS: PANTOPRAZOLE SODIUM 40 MG TAB PO SCH (18:10)
--- NOTE | 2016-08-02 18:15 | PCMIDPN ---
Assessment/Plan: Assessment: enterococcal bacteremia of unclear origin. UA not abnormal and imaging of his lumbar spine -- recent procedure -- is without signs of enhancement. I would expect obvious abnormality of these images in the event of bacteremia source at his surgical site. Other possibilities include the biliary duct -- he has stones but no obvious signs otherwise of cholangitis. We dwayne have to treat for two weeks from the cleared blood cultures and then observe for recurrence of symptoms. Long discussion on this topic with the patient and his . Will get a PICC line. Plan: 1) Continue Vanco. 2) PICC line. 3) Arrange for home IV abx. 08/02/16 23:34 Subjective: Patient is doing much better today. Awake. alert and talkative. Objective: Vancomycin #3 Vital Signs Temp Pulse Resp BP Pulse Ox 36.7 C 85 18 135/72 H 96 08/02/16 16:31 08/02/16 18:09 08/02/16 16:31 08/02/16 18:09 08/02/16 16:31 Laboratory Results 08/01/16 05:50 08/01/16 05:50 08/01/16 08/02/16 08/03/16 05:59 05:59 05:59 Intake Total 650 900 Output Total 375 Balance 275 900 ESR 42 MM/HR (0-20) H 08/01/16 05:50 C-Reactive Protein 180.0 mg/L (<10.0) H 08/01/16 05:50 - Physical Exam General Appearance: WD/WN, alert, no apparent distress, non-toxic Respiratory: lungs clear, normal breath sounds, No respiratory distress Cardiac/Chest: regular rate, rhythm, No tachycardia Extremities: non-tender, normal inspection Back: normal inspection, No spine tenderness Skin: normal color, warm/dry, No rash Neuro/Psych: alert, normal mood/affect, oriented x 3 ICD10 Worksheet Patient Problems: Problems Problem Status Onset Fever Acute Right hip pain Acute Severe sepsis Acute Low back pain Acute MRSA (methicillin resistant Staphylococcus aureus) Acute 06/28/15
[2016-08-02] MEDS: PSYLLIUM METAMUCIL 1 PKT PO SCH (20:28)
[2016-08-02] MEDS: ACETAMINOPHEN 325 MG TAB PO PRN (20:28)
[2016-08-02 22:19] VITALS: RESP 16
[2016-08-03] MEDS: oxyCODONE IR 5 MG TAB PO PRN ×3 (01:43→11:27)
[2016-08-03 06:25] LABS: % IMMATURE GRANULYOCYTES 0.6 % (0.0-1.1); ABSOLUTE IMMATURE GRANULOCYTES 0.04 10^3/uL (0.00-0.10); ADD DIFF? NO; ADD MORPH? NO; ADD SCAN? YES; ATYPICAL LYMPHOCYTE FLAG 0 (0-99); FRAGMENT RBC FLAG 0 (0-99); HEMATOCRIT 36.8 % (40.0-51.0); HEMOGLOBIN 12.8 g/dL (13.7-17.5); LEFT SHIFT FLG 10 (0-99); LIPEMIA HEMOLYSIS FLAG 90 (0-99); MEAN CELL HEMOGLOBIN 30.2 pg (27.9-34.1); MEAN CELL HEMOGLOBIN CONCENTR. 34.8 g/dL (32.4-36.7); MEAN CELL VOLUME 86.8 fL (81.5-99.8); MEAN PLATELET VOLUME 9.2 fL (8.7-11.7); PLATELET COUNT 107 10^3/uL (150-400); RED BLOOD CELL COUNT 4.24 10^6/uL (4.40-6.38); RED CELL DISTRIBUTION WIDTH 13.8 % (11.5-15.2)
[2016-08-03 06:29] LABS: PLATELET CLUMPS FLAG 300 (0-99)
[2016-08-03 07:38] LABS: SCAN NEGATIVE
[2016-08-03 07:45] LABS: ALANINE AMINOTRANSFERASE 66 IU/L (21-72); ALKALINE PHOSPHATASE 81 IU/L (38-126); ANION GAP 15 mEq/L (8-16); ASPARTATE AMINOTRANSFERASE 54 IU/L (17-59); BILIRUBIN,TOTAL 1.1 mg/dL (0.1-1.4); CALCIUM 9.1 mg/dL (8.5-10.4); CARBON DIOXIDE 19 mEq/l (22-31); CHLORIDE 108 mEq/L (97-110); GLOMERULAR FILTRATION RATE > 60; GLUCOSE 153 mg/dL (70-100); POTASSIUM 3.9 mEq/L (3.5-5.2); SODIUM 142 mEq/L (134-144); TOTAL PROTEIN 7.2 g/dL (6.3-8.2)
[2016-08-03] MEDS: INSULIN LISPRO 100 UNIT/ML SC SCH (08:00)
[2016-08-03 08:10] VITALS: TEMP 99; O2SAT 93
[2016-08-03] MEDS: VANCOMYCIN 1.25 GM in D5W 250 ML IV SCH (08:36)
[2016-08-03] MEDS: GABAPENTIN 300 MG CAP PO SCH (08:37)
[2016-08-03] MEDS: ASPIRIN EC 81 MG TAB PO SCH (08:37)
[2016-08-03] MEDS: metFORMIN SR 500 MG TAB PO SCH (08:37)
[2016-08-03] MEDS: buPROPion XL 150 MG TAB PO SCH (08:37)
[2016-08-03] MEDS: CHOLECALCIFEROL VIT D3 1,000 UNITS TAB PO SCH (08:37)
[2016-08-03] MEDS: NIACIN ER 500 MG TAB.ER PO SCH (08:37)
[2016-08-03] MEDS: METOPROLOL TARTRATE 50 MG TAB PO SCH (08:38)
[2016-08-03 08:50] VITALS: PULSE 88
--- NOTE | 2016-08-03 08:51 | SOAPPROG ---
SOAP Progress Note Assessment/Plan: Assessment: Plan: 08/01/16 09:05 enterococcus infection--etiology remains to be elusive. Posterior right hip pain is only new finding. He is walking better with PT. New BC's drawn. Awaiting further developments and ID input CAD/HTN/high chol/DM--all stable prior pacer/defib placement--stable 08/02/16 08:44 enterococcus bacteremia--suspect l-spine incision from 06/14 surgery is most likely source. He is slightly warm and erythematous at this region, more than one would normally expect 7 weeks after surgery. Agree with PICC and Vanco and repeated imaging DM--metformin resumed back and hip pain improving 08/03/16 08:50 enterococcus bacteremia--source remains to be vague. Home with IV vanco BID if all arrangements made and ID agrees with plan. Future imaging? Subjective: Doing ok, no new c/o. Hoping to get home with IV antibiotics today. no GI complaints Objective: Vital Signs Temp Pulse Resp BP Pulse Ox 37.2 C 93 16 124/77 H 93 08/03/16 08:08 08/03/16 08:08 08/03/16 08:08 08/03/16 08:08 08/03/16 08:08 Laboratory Results 08/03/16 06:13 08/03/16 06:40 08/02/16 08/03/16 08/04/16 05:59 05:59 05:59 Intake Total 900 450 Output Total 600 Balance 900 -150 PT 15.7 SEC (12.0-15.0) H 07/31/16 05:01 INR 1.25 (0.83-1.16) H 07/31/16 05:01 Gen: NAD Spine: slight warmth at surgical site. No fluctuance Heart RRR Lungs CTAB WBC normal range, platelets improved, CMP ok glucose ok ICD10 Worksheet Patient Problems: Problems Problem Status Onset Fever Acute Right hip pain Acute Severe sepsis Acute Low back pain Acute MRSA (methicillin resistant Staphylococcus aureus) Acute 06/28/15
[2016-08-03] MEDS: PRESERVISION AREDS2 FORMULA EYE VIT 1 EACH PO SCH (12:40)
[2016-08-03] MEDS: VALSARTAN 160 MG TAB PO SCH (12:49)
[2016-08-03 12:50] VITALS: BP 120/71
[2016-08-03] MEDS: ENOXAPARIN 40 MG/0.4 ML SYR SC SCH (13:58)
--- NOTE | 2016-08-03 14:05 | GDS ---
[f rep st] DISCHARGE SUMMARY DATE OF TRANSFER TO HOME WITH HOME HEALTH CARE: 08/03/2016. REASON FOR ADMISSION: Concern for significant systemic infection. DISCHARGE DIAGNOSES: Sepsis secondary to enterococcus bacteremia. HOSPITAL COURSE: The patient was admitted to the ER due to concerning findings in the office with altered level of consciousness, fever and concern for bacteremia. He was found to have a temperature of 38.5. He was empirically started on vancomycin and Invanz after initial cultures. He had imaging including CT of spine and pelvis which did not identify localizing source of infection. He had a fairly significant right hip pain which gradually abated during the course of his hospital stay. He had an echocardiogram which did not identify clear evidence of vegetations, although the study was very technically limited. He had ID consultation as well as Neurosurgery consultation ultimately after not being able to clearly identify source and a suggestion of 2 weeks of IV vancomycin has been made by Infectious Disease. He has not had any further growth on her cultures. A PICC line has been placed. At this point , he will be discharged home on vancomycin 1.25 mg IV twice daily through a home health infusion company. He will have trough levels of vancomycin drawn as per orders from Infectious Disease. He will have follow up with us and ID over the next week. Currently, it is anticipated a 2-week course and then following to see if he has any redevelopment of symptoms. If his symptoms change, further or more tailored directed imaging or further testing will be done. /[id number]/MODL MTDD
--- NOTE | 2016-08-03 16:27 | PCMIDPN ---
Assessment/Plan: # sepsis on admission due to bacteremia, sepsis now resolved # Enterococcal bacteremia, unclear source. Imaging of lumbar spine, pelvis, right upper quadrant/gallbladder all negative. Echocardiogram was nondiagnostic. CRP 180 --DC on vancomycin today --reviewed plans for home IV antibiotic and follow up with ID as outpatient with patient and # thrombocytopenia likely due to infection, we will continue to monitor Medications vancomycin 1.25 g IV Q 12h Microbiology 08/01 blood cultures (2) NGTD 07/31 blood cultures (2) NGTD 07/30 blood cultures (2) Enterococcus Time 15 min >50% time spent with education and counseling regarding IV antibiotic treatment, planned course Subjective: R hip pain much improved Objective: Vital Signs Temp Pulse Resp BP Pulse Ox 37.2 C 88 16 120/71 93 08/03/16 08:08 08/03/16 08:38 08/03/16 08:08 08/03/16 12:49 08/03/16 08:08 Laboratory Results 08/03/16 06:13 08/03/16 06:40 08/02/16 08/03/16 08/04/16 05:59 05:59 05:59 Intake Total 900 450 Output Total 600 Balance 900 -150 ESR REJ 08/03/16 05:29 C-Reactive Protein TNP 08/03/16 05:29 - Physical Exam General Appearance: alert Respiratory: No accessory muscle use Skin: No rash Neuro/Psych: alert, normal mood/affect, oriented x 3 - Line/s RUE PICC Lines: No drainage, No erythema ICD10 Worksheet Patient Problems: Problems Problem Status Onset Fever Acute Low back pain Acute MRSA (methicillin resistant Staphylococcus aureus) Acute 06/28/15 Right hip pain Acute Severe sepsis Acute
== END 2016-08-03 15:22 | disposition home health service (06) | DRG 872 ==
LOC: F3N 21:14
PROVIDERS: ADMIT Internal Medicine; ATTEND Internal Medicine
PROC: 02HV33Z Insertion of Infusion Device into Superior Vena Cava, Percutaneous Approach (ICD-10-PCS; principal; 2016-08-03)
DX: A41.81 Sepsis due to Enterococcus (principal); M25.551 Pain in right hip; E11.9 Type 2 diabetes mellitus without complications; I10 Essential (primary) hypertension; Z95.0 Presence of cardiac pacemaker; Z96.653 Presence of artificial knee joint, bilateral; Z87.891 Personal history of nicotine dependence; K21.9 Gastro-esophageal reflux disease without esophagitis; E78.5 Hyperlipidemia, unspecified; Z79.84 Long term (current) use of oral hypoglycemic drugs
CPT/HCPCS: 96365; 96366; 97116-GP; 97161-GP; 97165-GO; 97530-GO; 97535-GO; C1751; G8978-GP-CJ; G8979-GP-CI; G8987-GO-CI; G8988-GO-CI; G8989-GO-CI; J1170; J1335; J1650; J1815; J3370; Q9967

== ENCOUNTER 2017-02-06 16:37 | Observation (INO) | payer OTHER ==
--- NOTE | 2017-02-06 16:56 | CPEKG ---
Heart Rate: 77 RR Interval: 779 P-R Interval: 164 QRSD Interval: 88 QT Interval: 392 QTC Interval: 444 P [place]: 59 QRS [place]: -41 T Wave [place]: 59 EKG Severity - ABNORMAL ECG - EKG Impression: SINUS RHYTHM EKG Impression: LEFT ANTERIOR FASCICULAR BLOCK Electronically Signed By: Renetta Reyes 06-Feb-2017 20:57:49
--- NOTE | 2017-02-06 17:00 | EDPHY ---
H & P Stated Complaint: Fall couple times today Time Seen by Provider: 02/06/17 16:40 - Personal History Current Tetanus/Diphtheria Vaccine: Yes Current Tetanus Diphtheria and Acellular Pertussis (TDAP): Yes Tetanus Vaccine Date: 2011 - Medical/Surgical History Hx Asthma: No Hx Chronic Respiratory Disease: No Hx Diabetes: Yes Hx Cardiac Disease: Yes Hx Renal Disease: No Hx Cirrhosis: No Hx Alcoholism: No Hx HIV/AIDS: No Hx Splenectomy or Spleen Trauma: No Other PMH: bilateral knee replacements. Type2 DM. HTN. Pacemaker. Sciatica. Balance issues - Social History Smoking Status: Never smoked Constitutional: Initial Vital Signs Temperature (C) 37.1 C 02/06/17 16:40 Heart Rate 75 02/06/17 16:40 Respiratory Rate 18 02/06/17 16:40 Blood Pressure 123/69 H 02/06/17 16:40 O2 Sat (%) 92 02/06/17 16:40 O2 Delivery Mode Room Air Allergies/Adverse Reactions: venom-wasp [Wasp Venom] Allergy (Intermediate, Verified 07/30/16 15:58) Home Medications: Medication Instructions Recorded Cholecalciferol (Vitamin D3) 2,000 unit PO BID 12/03/11 [Vitamin D-3] Hydrochlorothiazide [HCTZ (*)] 25 mg PO HS 12/03/11 Metoprolol Tartrate [Lopressor 50 50 mg PO BIDMEAL 06/12/16 mg (*)] Potassium Citrate [Potassium 20 meq PO TID 06/12/16 Citrate ER] Valsartan [Diovan] 320 mg PO DAILY@1200 06/12/16 amLODIPine BESYLATE [Amlodipine 10 mg PO DAILY 06/12/16 Besylate] Allopurinol [Allopurinol 300 MG 300 mg PO HS 07/30/16 (RX)] Aspirin EC [Aspirin EC 81 mg (*)] 81 mg PO DAILY 07/30/16 Atorvastatin Calcium [Lipitor 40 40 mg PO DAILY@1800 07/30/16 mg (*)] Gabapentin [Neurontin 300 MG (*)] 300 mg PO BID 07/30/16 Herbals/Supplements -Info Only 1 ea PO AD 07/30/16 Omeprazole [Prilosec 20 mg] 20 mg PO Q2D@1800 07/30/16 Psyllium Husk (with Sugar) 1 pkt PO HS 07/30/16 [Metamucil Packet] Vitamin B Complex [B Complex] 1 each PO DAILY@1800 07/30/16 C/E/Zn/Cu/OM3/DHA/EPA/LUT/ZEAX 1 each PO BID@1200,1800 #0 cap 08/03/16 [Preservision Areds 2 Softgel] Bupropion HCl [Wellbutrin Xl] 300 mg PO DAILY 02/06/17 Ibuprofen [Advil] 200 mg PO Q6H PRN 02/06/17 metFORMIN SR [Glucophage XR 500 mg 500 mg PO BID 02/06/17 (*)] Medical Decision Making - Diagnostics Imaging Results: Imaging Impressions Head CT 02/06/17 17:15 Impression: 1. No acute intracranial findings. 2. Diffuse cerebral atrophy with periventricular and subcortical low attenuation consistent with chronic microvascular ischemic gliosis. Findings discussed with Dr. Ruben Smith on February 06, 2017 at 1859 hours. Head CTA 02/06/17 17:16 Impression: 1. No acute vascular findings. 2. Severe multilevel degenerative change in the cervical spine with severe spinal canal narrowing at multiple levels, most prominent at C3-C4 and C5-C6. Stenoses are calculated using [place] Symptomatic Carotid Endarterectomy Trial (NASCET) criteria. Neck CTA 02/06/17 17:16 Impression: 1. No acute vascular findings. 2. Severe multilevel degenerative change in the cervical spine with severe spinal canal narrowing at multiple levels, most prominent at C3-C4 and C5-C6. Stenoses are calculated using [place] Symptomatic Carotid Endarterectomy Trial (NASCET) criteria. Imaging: Discussed imaging studies w/ call center team leader Radiologist, I viewed and interpreted images myself ED Course/Re-evaluation: CHIEF COMPLAINT: Dizziness and multiple falls HISTORY OF PRESENT ILLNESS: 71-year-old gentleman who has had dizziness and multiple falls over the last month but has been progressing over the last couple of days. Today he was just walking and fell completely. He is losing his balance. He is not spinning. She denies any recent trauma other than these minor falls but he did not hit his head. He does not take blood thinners. He has had a back surgery in the past and has had some difficulty with status but is denying any fevers or chills or similar symptomatology. He does endorse a tremor in his right hand. REVIEW OF SYSTEMS: A 10 point review of systems was performed and is negative with the exception of the elements mentioned in the history of present illness. PHYSICAL EXAM: HR, BP, O2 Sat, RR. Temp noted General Appearance: Alert, well hydrated, appropriate, and non-toxic appearing. Head: Atraumatic without scalp tenderness or obvious injury Eyes: Pupils equal, round, reactive to light and accommodation, EOMI, no trauma , no injection. Ears: Clear bilaterally, no perforation, normal landmarks Nose: Atraumatic, no rhinorrhea, clear. Throat: There is no erythema or exudates, no lesions, normal tonsils, mucus membranes moist. Neck: Supple, 2+ carotid upstroke, nontender, no lymphadenopathy. Respiratory: No retractions, no distress, no wheezes, and no accessory muscle use. Lungs are clear to auscultation bilaterally. Cardiovascular: Regular rate and rhythm, no murmurs, rubs, or gallops. Bilateral carotid, radial, dorsalis pedis, and posterior tibial pulses intact. Good capillary refill all extremities. Gastrointestinal: Abdomen is soft, nontender, non-distended, no masses, no rebound, no guarding, no peritoneal signs. Musculoskeletal: Normal active ROM of all extremities, atraumatic. Neurological: Alert, appropriate, and interactive. The patient has normal DTRs and non-focal cranial nerves, motor, sensory. Cerebellar exam is abnormal Skin: No rashes, good turgor, no nodules on palpation. Past medical history: Prior back surgery, type 2 diabetes, hypertension Past surgical history: Spinal fusion Family history: Noncontributory Social history: Retired, , does not abuse tobacco drugs or alcohol DIAGNOSTICS/PROCEDURES/CRITICAL CARE TIME: Study: CT of the head without contrast, angio head and neck Indication: dizziness and falls. Patient has a pacemaker and cannot undergo MRI Results: CT scan of the body parts was obtained. The results of the study are negative. The study was read by the radiologist, Dr. Diego. I viewed the images myself on the PACS system. DIFFERENTIAL DIAGNOSIS: The differential diagnosis for the patient's dizziness included but was not limited to peripheral and central causes of vertigo, orthostatic causes including dehydration, cardiogenic and neurogenic causes, and blood loss. MEDICAL DECISION MAKING: This 71-year-old gentleman has had progressive balance abnormalities and falls with some tremor in his right hand. It is certainly possible that he has some neuromuscular disorder like Parkinson's disease. Unfortunately were unable to do MRIs due to the patient's pacemaker. We will perform CT without contrast and CT angiography of his head and neck make sure this is not an ischemic event or a bleed or a mass. I will admit this patient hospital as it is not safe at this point since when he fell earlier today his could not get him up. CTs are negative for acute process. Reassessed patient and discussed results. He will require admission for neurologic work up. Spoke with Dr. Annie Solorzano on-call for patient's PCP, Dr. Eisenberg. She will admit patient to the hospital. It is after 20:00, so there is no [facility] neurologist on-call available to consult on the patient. I've added a neurology consult order for tomorrow. - Data Points Laboratory Results: Laboratory Results 02/06/17 17:35 02/06/17 17:35 02/06/17 02/06/17 17:35 17:35 WBC 8.65 10^3/uL 10^3/uL (3.80-9.50) RBC 4.60 10^6/uL 10^6/uL (4.40-6.38) Hgb 13.8 g/dL g/dL (13.7-17.5) Hct 40.5 % % (40.0-51.0) MCV 88.0 fL fL (81.5-99.8) MCH 30.0 pg pg (27.9-34.1) MCHC 34.1 g/dL g/dL (32.4-36.7) RDW 14.8 % % (11.5-15.2) Plt Count 116 10^3/uL L 10^3/uL (150-400) MPV 9.5 fL fL (8.7-11.7) Neut % (Auto) 68.4 % % (39.3-74.2) Lymph % (Auto) 16.8 % % (15.0-45.0) Antelope % (Auto) 10.4 % % (4.5-13.0) Eos % (Auto) 3.6 % % (0.6-7.6) Baso % (Auto) 0.5 % % (0.3-1.7) Nucleat RBC Rel Count 0.0 % % (0.0-0.2) Absolute Neuts (auto) 5.92 10^3/uL 10^3/uL (1.70-6.50) Absolute Lymphs (auto) 1.45 10^3/uL 10^3/uL (1.00-3.00) Absolute Monos (auto) 0.90 10^3/uL H 10^3/uL (0.30-0.80) Absolute Eos (auto) 0.31 10^3/uL 10^3/uL (0.03-0.40) Absolute Basos (auto) 0.04 10^3/uL 10^3/uL (0.02-0.10) Absolute Nucleated RBC 0.00 10^3/uL 10^3/uL (0-0.01) Immature Gran % 0.3 % % (0.0-1.1) Immature Gran # 0.03 10^3/uL 10^3/uL (0.00-0.10) Sodium 141 mEq/L mEq/L (134-144) Potassium 4.8 mEq/L mEq/L (3.5-5.2) Chloride 104 mEq/L mEq/L (97-110) Carbon Dioxide 20 mEq/l L mEq/l (22-31) Anion Gap 17 mEq/L H mEq/L (8-16) BUN 30 mg/dL H mg/dL (7-23) Creatinine 1.6 mg/dL H mg/dL (0.7-1.3) Estimated GFR 43 Glucose 155 mg/dL H mg/dL (70-100) Calcium 9.5 mg/dL mg/dL (8.5-10.4) Troponin I < 0.012 ng/mL ng/mL (0.000-0.034) Medications Given: Discontinued Medications Sodium Chloride (Ns) 1,000 mls @ 0 mls/hr IV ONCE ONE PRN Reason: Wide Open Stop: 02/06/17 18:30 Last Admin: 02/06/17 18:50 Dose: 1,000 mls Departure - Departure
[2017-02-06 18:12] LABS: PLATELET COUNT 116 10^3/uL (150-400)
[2017-02-06] MEDS ORDERED: IOPAMIDOL (ISOVUE 370) 100 ML BTL IV ONE (18:23)
[2017-02-06] MEDS ORDERED: NS 1,000 ML IV ONE (18:29)
--- NOTE | 2017-02-06 21:57 | SOAPPROG ---
SOAP Progress Note Assessment/Plan: Assessment: Plan: 02/06/17 22:18 Decreased balance with hx of falls: worsening balance over the last several weeks, despite vestibular PT. Based on hx, wonder about increased dose Bupropion contributing to sx. Wonder about Parkinsons given cogwheeling on exam , gait instability, hx of not being able to control his speed today when walking downhill. Not able to get MRI due to pacemaker. Will cut bupropion dose back to 150mg daily. Anticipate neuro consult tomorrow. Diabetes: stable on metformin. Possible contribution from low blood sugars, but not documented. Hypertension: controlled on hctz, amlodipine, metoprolol, valsartan Hyperlipidemia: on lipitor CAD: stable coronary calcium as of last EBT heart scan in 06/21. GERD: has been on omeprazole but is weaning off. Prefers not to take it while here in the hospital. DVT prophylaxis: LUCIO rosario, on aspirin. Will not anticoagulate due to fall risk. Hx sepsis without clear etiology: blood cx drawn in ED Dispo: admit to observation. Subjective: 71 yo male with a hx of multiple medical problems was outside today moving something at home and he fell into the bushes. Didn't trip, just fell. He then went for a walk with his and dogs, but tired quickly and his back started to hurt, so he turned around. Was heading downhill and wasn't able to control his speed and kept going faster until he fell. No trauma. He called our office and was advised to come to the ED for further evaluation. He has been having increasing balance difficulties for the last 6 weeks. Yesterday he was at [employer], and as he went to open the car door, he slumped against the car, and couldn't readily move. His helped him off, and after a couple of deep breaths, was able to get into the car. Got home and checked his blood sugar. It was 73, low for him, but he hasn't felt as though his balance issues and falls were related to low blood sugar. He was referred to PT with Jose Pradhan in mid-December for balance concerns. She has been treating him with a vestibular program. Some things are better since starting, but overall he feels he is getting worse, losing his balance more easily. He is often able to catch himself so he doesn't fall all the way to the ground. He always falls to the left. He's not had any significant injury with the falls. He denies any dizziness, BELL. He has correlated the onset of these changes with an increase of his bupropion dose from 150mg daily to 300mg daily back in December. He has noted a tremor on occasion, but not since being placed on gabapentin. He has significant spinal stenosis with some weakness and sensory loss in his R hand. If he stops the gabapentin, the tremor will recur in a couple of days. In the ED, CT brain showed no mass, hemorrhage. He does have diffuse atrophy. He has a pacemaker so MRI not possible. CTA of head and neck was also unremarkable for acute findings. Carotid plaque was noted as was significant spinal stenosis. He is being admitted for further evaluation. Neurology consult has been requested through the ED for tomorrow. Objective: Vital Signs Temp Pulse Resp BP Pulse Ox 36.4 C 74 18 131/84 H 90 L 02/06/17 21:34 02/06/17 21:34 02/06/17 21:34 02/06/17 21:34 02/06/17 21:34 02/05/17 02/06/17 02/07/17 05:59 05:59 05:59 Intake Total 1000 Balance 1000 General: well-appearing, pleasant, cooperative, NAD HEENT: NC/AT. Pupils constrictive, minimally reactive. EOMI without nystagmus. Bilateral hearing aids. Oropharynx without erythema, exudates Neck: supple. No cervical adenopathy. No thyromegaly, nodules, tenderness. No carotid bruits Lungs: clear bilaterally Cardiovascular: RRR without murmur Abdomen: +bowel sounds, soft, NT, non-distended Extremities: no edema Neurologic: alert, oriented. CN intact. Normal BUE and LE strength. Bilateral upper extremity cogwheeling, L>R. After sitting on edge of bed for some time, began to have trouble holding himself upright, and started leaning backwards. Could pull himself back upright, but couldn't maintain it without effort. Finger -to-nose normal. Rapid alternating movement not very smooth. Romberg negative. Did not test gait due to concern for fall. ICD10 Worksheet Patient Problems: Problems Problem Status Onset Fever Acute Low back pain Acute MRSA (methicillin resistant Staphylococcus aureus) Acute 06/28/15 Right hip pain Acute Severe sepsis Acute
[2017-02-06] MEDS ORDERED: ONDANSETRON 4 MG/2 ML VIAL IVP PRN (22:31)
[2017-02-06] MEDS ORDERED: ACETAMINOPHEN 325 MG TAB PO PRN (22:31)
[2017-02-06] MEDS ORDERED: ONDANSETRON DISINTEGRATING 4 MG TAB PO PRN (22:31)
[2017-02-06] MEDS ORDERED: IBUPROFEN 200 MG TAB PO PRN (22:35)
[2017-02-06] MEDS ORDERED: Herbals/Supplements -Info Only PO SCH (23:00)
--- NOTE | 2017-02-06 23:56 | GHP ---
[f rep st] HISTORY AND PHYSICAL DATE OF ADMISSION: 02/06/2017 HISTORY OF PRESENT ILLNESS: The patient is a 71-year-old male with a history of multiple medical problems who was outside today moving something at home when he fell into the bushes. He did not trip, he simply fell. He then went for a walk later with his and dogs but tired quickly when his back started to hurt, so he turned around. He was heading downhill and was not able to control his speed and kept going faster until he fell. There was no trauma. He called our office and was advised to come to the emergency department for further evaluation. He has been having increasing balance difficulties for the last 6 weeks. Yesterday, he was at [employer] and when he went to open the car door, he slumped against the car and could not readily move. His helped him off and after a couple of deep breaths, he was able to get back into the car. He got home and checked his blood sugar. It was 73, which is low for him, but he has not felt as though his balance issues and falls were related to low blood sugar. He was referred to physical therapy with Jose Pradhan in mid-December for balance concerns. She has been treating him with a vestibular program. He states that some things are better since starting but overall, he feels he is getting worse and losing his balance more easily. He is often able to catch himself, so he does not fall all the way to the ground. He always falls to the left. He has not had any significant injury with the falls. He denies any dizziness or headache. He has correlated with the onset of these changes with an increase in his bupropion dose from 150 mg daily to 300 mg daily back in December. He has noted a tremor on occasion, but not since being placed on gabapentin. He has significant spinal stenosis with some weakness and sensory loss in his right hand. If he stops the gabapentin, the tremor will recur within a couple of days. In the emergency department, a CT scan was negative for mass or hemorrhage. He does have diffuse atrophy. He has a pacemaker, so MRI was not possible. A CTA of the head and neck were also unremarkable for acute findings. Carotid plaque was noted, as was significant cervical spinal stenosis. He is being admitted for further evaluation. Neurology consult has been requested through the emergency department for tomorrow. PAST MEDICAL HISTORY: GERD; allergic rhinitis; basal cell, left shoulder, 2010 ; positive heart scan with coronary artery plaque, stable on last scan in 06/21 ; high cholesterol; hypertension; recurrent ureteral stones; remote history of ulcerative colitis; diabetes mellitus; vitamin D deficiency; cataracts; poor balance. MEDICATIONS: Current medications: Allopurinol 300 mg daily. Bupropion 300 mg daily. Celecoxib 200 mg every other day. Hydrochlorothiazide 25 mg daily. EpiPen as needed. Potassium citrate extended release 10 mEq 2 tablets 3 times daily. Atorvastatin 40 mg daily. Metformin 500 mg b.i.d. Gabapentin 300 mg t.i.d. Amlodipine 10 mg daily. Omeprazole 20 mg every other day. Metoprolol tartrate 50 mg b.i.d. Valsartan 320 mg daily. Ocuvite 1 daily. Vitamin D 2000 international units daily. Vitamin B12 at 100 mcg daily. Metamucil daily. Aspirin 325 mg daily. ALLERGIES: No known drug allergies. PAST SURGICAL HISTORY: Pacemaker, back surgery, bilateral knee replacements. FAMILY HISTORY: Father at 82 from COPD, peptic ulcer disease, and coronary artery disease. His mother at 97. He has a sister with high triglycerides. SOCIAL HISTORY: He is . He is a former smoker. He is retired. REVIEW OF SYSTEMS: GENERAL: No fever or chills. He acknowledges fatigue. HEENT: Bilateral cataracts with blurred vision. Recent URI, resolved. Bilateral hearing loss. RESPIRATORY: He has a morning cough productive of yellowish sputum but none during the rest of the day. No shortness of breath. No wheezing. CARDIOVASCULAR: No chest pain, chest pressure, or chest heaviness. No edema. GI: No nausea, vomiting, diarrhea, constipation. No abdominal pain or blood in stool. GENITOURINARY: Mild urinary urgency. Some dysuria with initiation of urinary stream, but this is longstanding and unchanged. Has decreased flow. ENDOCRINE: No routine history of low blood sugars. MUSCULOSKELETAL: Right shoulder pain, spinal cervical stenosis without pain, low back pain. NEUROLOGIC: No headaches. Falls as per HPI. Mild weakness in his right hand associated with mild sensory loss in his lateral fingers. PSYCHIATRIC: Fatigue and some mental fogginess. PHYSICAL EXAMINATION: VITAL SIGNS: Blood pressure 129/85, heart rate 75, respiratory rate 16, O2 saturation 94% on room air, temperature 96.6. GENERAL: He is well appearing, pleasant, cooperative, in no acute distress. HEENT: Normocephalic, atraumatic. Pupils are constricted and minimally reactive. Extraocular movements without nystagmus. Bilateral hearing aids. Oropharynx without erythema or exudates. NECK: Supple without cervical adenopathy. No thyromegaly, nodules, or tenderness. No carotid bruits. LUNGS: Clear bilaterally. CARDIOVASCULAR: Regular rate and rhythm without murmur. ABDOMEN : Soft with normal bowel sounds, nontender, nondistended. EXTREMITIES: No edema. NEUROLOGIC: He is alert and oriented. Cranial nerves are intact. Normal bilateral upper and lower extremity strength. Bilateral upper extremity cogwheeling, left greater than right. After sitting on the edge of the bed for some time, he began to have trouble holding himself upright and started to fall backwards. He could pull himself back upright but could not maintain it without effort. Finger to nose normal. Rapid alternating movements not very smooth. Romberg negative. Did not test gait due to concern for fall. LABS: White blood count 8.65, hemoglobin 13.8, hematocrit 40.5, platelets 116. Sodium 141, potassium 4.8, chloride 104, carbon dioxide 20, BUN 30, creatinine 1.6, glucose 135. Calcium 9.5. Troponin less than 0.012. ASSESSMENT AND PLAN: 1. Decreased balance with history of falls. He has had worsening balance over the last several weeks despite vestibular PT. Based on history, I wonder about the increased dose of bupropion contributing to his symptoms. Also wonder about Parkinson's given his cogwheeling on exam, gait instability, and history of not being able to control his speed today while walking downhill. Not able to get MRI due to pacemaker. Will decrease his bupropion dose back to 150 mg daily. Anticipate Neuro consult tomorrow. 2. Diabetes, stable on metformin. Possible contribution from low blood sugars but not documented. 3. Hypertension, adequately controlled on hydrochlorothiazide, amlodipine, metoprolol, and valsartan. 4. Hyperlipidemia, on Lipitor. 5. Coronary artery disease. Stable coronary calcium as of last EBT heart scan in 06/21. 6. Gastroesophageal reflux disease. Has been on omeprazole but is weaning himself off, taking it every other day. Prefers not to take it while he is here in the hospital. 7. Deep venous thrombosis prophylaxis. Will use LUCIO hose. He is currently on aspirin. Will not anticoagulate due to fall risk. 8. History of sepsis without clear etiology. Blood cultures drawn in the ED. 9. Renal insufficiency. I will need to check his office chart to see if this is a chronic finding. DISPOSITION: Will admit to observation. Unclear if he will need to be here longer than a day or two. /[id number]/MODL MTDD
[2017-02-07] MEDS ORDERED: METOPROLOL TARTRATE 50 MG TAB PO SCH (08:00)
[2017-02-07] MEDS ORDERED: buPROPion XL 150 MG TAB PO SCH (09:00)
[2017-02-07] MEDS ORDERED: metFORMIN SR 500 MG TAB PO SCH (09:00)
[2017-02-07] MEDS ORDERED: CHOLECALCIFEROL VIT D3 2,000 UNITS TAB/CAP PO SCH (09:00)
[2017-02-07] MEDS ORDERED: CHOLECALCIFEROL 2000 UNIT PO SCH (09:00)
[2017-02-07] MEDS ORDERED: ASPIRIN 325 MG TAB PO SCH (09:00)
[2017-02-07] MEDS ORDERED: ASPIRIN EC 81 MG TAB PO SCH (09:00)
[2017-02-07] MEDS ORDERED: BUPROPION HCL 150 MG PO SCH (09:00)
--- NOTE | 2017-02-07 09:10 | SOAPPROG ---
SOAP Progress Note Assessment/Plan: Assessment: Plan: 02/06/17 22:18 Decreased balance with hx of falls: worsening balance over the last several weeks, despite vestibular PT. Based on hx, wonder about increased dose Bupropion contributing to sx. Wonder about Parkinsons given cogwheeling on exam , gait instability, hx of not being able to control his speed today when walking downhill. Not able to get MRI due to pacemaker. Will cut bupropion dose back to 150mg daily. Anticipate neuro consult tomorrow. Diabetes: stable on metformin. Possible contribution from low blood sugars, but not documented. Hypertension: controlled on hctz, amlodipine, metoprolol, valsartan Hyperlipidemia: on lipitor CAD: stable coronary calcium as of last EBT heart scan in 06/21. GERD: has been on omeprazole but is weaning off. Prefers not to take it while here in the hospital. DVT prophylaxis: LUCIO rosario, on aspirin. Will not anticoagulate due to fall risk. Hx sepsis without clear etiology: blood cx drawn in ED Dispo: admit to observation. 02/07/17 09:11 Decreased balance with falls: more normal today, but still unclear what is causing this episode loss of balance. Awaiting neuro consult. Has pacer, so will request that it be interrogated for arrhythmia. Renal insufficiency: awaiting follow up BMP. Creatinine in office usually normal. Suspect dehydration. Did receive 1L NS in ED. Subjective: No problems overnight. Did get up to toilet without calling for assistance. No falls, balance issues. Per , who is here this morning, his fall yesterday was more like a crumple. Just couldn't stand so fell down. Was not on a significant decline. Also hallucinated yesterday. Was convinced there was a cat in the house. got him up and took him over to the place where he thought the cat was and had him feel around for it. Has not hallucinated before. Per , his gait and balance are much more normal today. Last night, she wasn't sure she could care for him at home if the falls continued. She had to get help to get him up yesterday. Objective: Vital Signs Temp Pulse Resp BP Pulse Ox 36.7 C 75 20 135/90 H 95 02/07/17 07:24 02/07/17 07:24 02/07/17 07:24 02/07/17 07:24 02/07/17 07:24 02/06/17 02/07/17 02/08/17 05:59 05:59 05:59 Intake Total 1000 Output Total 625 Balance 375 General: alert, well-appearing Neck: no masses, adenopathy Lungs: clear Cardiovascular: RRR without murmur Extremities: no edema ICD10 Worksheet Patient Problems: Problems Problem Status Onset Fever Acute Low back pain Acute MRSA (methicillin resistant Staphylococcus aureus) Acute 06/28/15 Right hip pain Acute Severe sepsis Acute
[2017-02-07] MEDS: GABAPENTIN 300 MG CAP PO SCH ×2 (09:11→16:01)
[2017-02-07] MEDS: POTASSIUM CITRATE 10 MEQ TAB PO SCH ×2 (09:11→16:01)
[2017-02-07 11:49] VITALS: RESP 18
--- NOTE | 2017-02-07 11:59 | GCON ---
[f rep st] CONSULTATION NEUROLOGY CONSULTATION REFERRING PHYSICIAN: Annie Solorzano MD CHIEF COMPLAINT: Ataxia. HISTORY OF PRESENT ILLNESS: The patient is a very pleasant 71-year-old gentleman, who has a past medical history that includes diabetes, GERD, coronary artery disease, and depression. He states that around 6 weeks ago, he began having problems with intermittent ataxia when his Wellbutrin was increased from 150 to 300 mg daily. There is no vertigo or presyncopal symptoms. He will suddenly have loss of balance and list to the left or right, more often to the left, and can fall. There also was a single episode of a possible visual hallucination, where he saw a cat but his did not. Otherwise, no other progressive cognitive decline or other neurologic symptoms. 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 This is well controlled with gabapentin, which he takes 300 mg twice daily. REVIEW OF SYSTEMS: Ten-point review of systems was done, only pertinent to the HPI. For past medical history, social history, home medications, family history, and allergies, please see Dr. Solorzano's H and P. PHYSICAL EXAMINATION: VITAL SIGNS: Blood pressure 129/79, temperature 36.8, respirations 18, heart rate 77. GENERAL: No acute distress. Very pleasant. NEUROLOGIC: Higher mental function: He is awake and alert. He is giving his history in a lucid manner. There is no aphasia. Cranial nerves: Normal 2 through 7, 11, and 12. On motor exam, he has no focal weakness. Tone is normal. There is no cogwheel rigidity. Reflexes are symmetric throughout. On sensory exam, he has normal light touch throughout. On coordination, he has normal nroxso-vurv-kuside in terms of accuracy; however, he does have action tremors that are mild in both upper extremities. On gait exam, the patient has a fairly steady and normal gait with normal stride length and velocity. There is no accentuation of tremor or pill rolling tremor present anytime during the exam. IMPRESSION AND PLAN: 1. Ataxia, not otherwise specified. The patient does not have any parkinsonism on exam, fortunately. I counseled him as such. I did senior living sales counselor him that I have seen antidepressants at higher doses cause a variety of neurologic symptoms, including tremors, problems with balance, and headaches. Certainly, the correlation of the increase in Wellbutrin to these symptoms may be a [id number] relationship or a coincidence. I recommend, going forward, that his Wellbutrin be reduced back to 150 mg daily. I also recommend he have a PT/OT evaluation for gait safety in the interim to prevent falls and make suggestions regarding gait aids. Lastly, he will follow up with me in 8 weeks to reassess the patient both clinically and in terms of the exam. Hopefully, if this is a medication effect , he will be improving or resolved at the 8-week point. If he is continuing to have symptoms or declining, certainly, we will rethink the underlying diagnosis and make recommendations accordingly regarding testing and treatment. I also reviewed the patient's testing done while here, which revealed a head CT showing no acute abnormalities. CTA of the head and neck showed no acute vascular findings to suggest a neurovascular cause for his symptoms. We will look forward to seeing him in 8 weeks as an outpatient. No further recommendations now. I spoke to Dr. Solorzano, who will likely discharge him later today. Thank you for this consultation. Seventy total minutes on the floor today, reviewing the patient's imaging, records, in direct counseling with the patient, and coordination of care. /[id number]/MODL MTDD
[2017-02-07] MEDS ORDERED: VALSARTAN 160 MG TAB PO SCH (12:00)
[2017-02-07] MEDS ORDERED: NON-FORMULARY NEW DRUG (Valsartan [Diovan] 320 MG) PO SCH (12:00)
[2017-02-07] MEDS ORDERED: PRESERVISION AREDS2 FORMULA EYE VIT 1 EACH PO SCH (12:00)
[2017-02-07] MEDS ORDERED: FLU VACC QS 2017-18 (3YR+)/PF 0.5 ML SYR (FLUARIX QUAD) IM ONE (14:06)
--- NOTE | 2017-02-07 14:24 | ASMTCASEMG ---
Living Arrangements What is your living Answers: With Spouse arrangement? Who do you live with? Type Of Residence What kind of residence do Answers: House you live in? Discharge Plan Comments Coordination Status Comments Notes: Pt is a 71 y/o man admitted after a fall. Pt has been having balancing issues for the last 6 weeks. Pt currently is working w/ a outpatient PT. PT and OT are recommending home with outpatient therapies. CM available for changes. Date Signed: 02/07/2017 02:23 PM Electronically Signed By:BRETT Moreno
[2017-02-07 15:39] VITALS: BP 116/71; PULSE 72; TEMP 97.7; O2SAT 93
[2017-02-07] MEDS ORDERED: VITAMIN B COMPLEX 1 EA CAP/TAB PO SCH (18:00)
[2017-02-07] MEDS ORDERED: ATORVASTATIN CALCIUM 40 MG TAB PO SCH (18:00)
[2017-02-07] MEDS ORDERED: HYDROCHLOROTHIAZIDE 25 MG TAB PO SCH (21:00)
[2017-02-07] MEDS ORDERED: ALLOPURINOL 300 MG TAB PO SCH (21:00)
[2017-02-08] MEDS ORDERED: ASPIRIN 325 MG TAB PO SCH (09:00)
--- NOTE | 2017-02-08 09:37 | ASDISCHSUM ---
Discharge Information Plan Status:Home with No Needs Medically Cleared to Leave: Discharge Date:02/07/2017 04:33 PM CM D/C Disposition:Home, Routine, Self-Care ADT D/C Disposition:Home, Routine, Self-Care Projected Discharge Date:02/08/2017 12:00 AM Transportation at D/C:Family Discharge Delay Reason: Follow-Up Date:02/08/2017 12:00 AM Discharge Slot: Final Diagnosis: Placement Information Patient Contact Information Contact Name:PUMA Relationship: Address:[address] [place] Alternate Phone: State/Zip Code:[place] [address] Email: Financial Information Financial Class: Primary Plan Desc:MEDICARE OUTPATIENT Primary Plan Number:[id number] Secondary Plan Desc:[facility] Secondary Plan Number:[id number] Assessment Information [facility] Initial CM Assessment Living Arrangements What is your living Answers: With Spouse arrangement? Who do you live with? Type Of Residence What kind of residence do Answers: House you live in? Discharge Plan Comments Coordination Status Comments Notes: Pt is a 71 y/o man admitted after a fall. Pt has been having balancing issues for the last 6 weeks. Pt currently is working w/ a outpatient PT. PT and OT are recommending home with outpatient therapies. CM available for changes. Date Signed: 02/07/2017 02:23 PM Electronically Signed By:BRETT Moreno Intervention Information Intervention Type:*[place]-Signed Date of Service:02/07/2017 10:30 AM Patient Type:Observation Staff Member:Marianna Addison Hours: Discipline: Severity: Comment:
--- NOTE | 2017-02-08 09:37 | ASDISCHSUM ---
Discharge Information Plan Status:Home with No Needs Medically Cleared to Leave: Discharge Date:02/07/2017 04:33 PM CM D/C Disposition:Home, Routine, Self-Care ADT D/C Disposition:Home, Routine, Self-Care Projected Discharge Date:02/08/2017 12:00 AM Transportation at D/C:Family Discharge Delay Reason: Follow-Up Date:02/08/2017 12:00 AM Discharge Slot: Final Diagnosis: Placement Information Patient Contact Information Contact Name:PUMA Relationship: Address:[address] [place] Alternate Phone: State/Zip Code:[place] [address] Email: Financial Information Financial Class: Primary Plan Desc:MEDICARE OUTPATIENT Primary Plan Number:[id number] Secondary Plan Desc:[facility] Secondary Plan Number:[id number] Assessment Information [facility] Initial CM Assessment Living Arrangements What is your living Answers: With Spouse arrangement? Who do you live with? Type Of Residence What kind of residence do Answers: House you live in? Discharge Plan Comments Coordination Status Comments Notes: Pt is a 71 y/o man admitted after a fall. Pt has been having balancing issues for the last 6 weeks. Pt currently is working w/ a outpatient PT. PT and OT are recommending home with outpatient therapies. CM available for changes. Date Signed: 02/07/2017 02:23 PM Electronically Signed By:BRETT Moreno Intervention Information Intervention Type:*[place]-Signed Date of Service:02/07/2017 10:30 AM Patient Type:Observation Staff Member:Marianna Addison Hours: Discipline: Severity: Comment:
--- NOTE | 2017-02-08 09:37 | ASDISCHSUM ---
Discharge Information Plan Status:Home with No Needs Medically Cleared to Leave: Discharge Date:02/07/2017 04:33 PM CM D/C Disposition:Home, Routine, Self-Care ADT D/C Disposition:Home, Routine, Self-Care Projected Discharge Date:02/08/2017 12:00 AM Transportation at D/C:Family Discharge Delay Reason: Follow-Up Date:02/08/2017 12:00 AM Discharge Slot: Final Diagnosis: Placement Information Patient Contact Information Contact Name:PUMA Relationship: Address:[address] [place] Alternate Phone: State/Zip Code:[place] [address] Email: Financial Information Financial Class: Primary Plan Desc:MEDICARE OUTPATIENT Primary Plan Number:[id number] Secondary Plan Desc:[facility] Secondary Plan Number:[id number] Assessment Information [facility] Initial CM Assessment Living Arrangements What is your living Answers: With Spouse arrangement? Who do you live with? Type Of Residence What kind of residence do Answers: House you live in? Discharge Plan Comments Coordination Status Comments Notes: Pt is a 71 y/o man admitted after a fall. Pt has been having balancing issues for the last 6 weeks. Pt currently is working w/ a outpatient PT. PT and OT are recommending home with outpatient therapies. CM available for changes. Date Signed: 02/07/2017 02:23 PM Electronically Signed By:BRETT Moreno Intervention Information Intervention Type:*[place]-Signed Date of Service:02/07/2017 10:30 AM Patient Type:Observation Staff Member:Marianna Addison Hours: Discipline: Severity: Comment:
--- NOTE | 2017-02-09 12:52 | GDS ---
[f rep st] DISCHARGE SUMMARY DISCHARGE DIAGNOSES: 1. Ataxia. 2. Elevated creatinine. CONSULTATIONS: Neurology, Dr. Srinivas Blanco. HISTORY OF PRESENT ILLNESS: The patient is a 71-year-old male admitted after 2 falls earlier in the day. He had been having worsening balance problems over the last 6 weeks, associated with falls, but this was an acceleration of his symptoms, and his did not feel she could care for him at home i f this continued. In the emergency department, CT of the brain was negative, as were CT angiograms o f the head and neck. His bupropion dose had been increased 6 weeks previously, so there was some con cern that this may be the reason for his symptoms. He was admitted to observation. The following mo rning, he was back to his usual baseline. He was seen by Dr. Blanco, who did not feel that his ataxia w as related to Parkinson's. His Wellbutrin dose was decreased back down to 150 mg, and he was stable for discharge later that afternoon. Of note, his creatinine was elevated at 1.6 following contrast a dministration for CT scan. Followup creatinine was 1.3. His metformin was held. He was advised to have followup BMP in the office within 1-2 days prior to resuming metformin. DISCHARGE MEDICATIONS: Bupropion XL 150 mg daily, vitamin D 2000 international units b.i.d., hydroch lorothiazide 25 mg daily, potassium citrate 20 mEq p.o. t.i.d., amlodipine 10 mg daily, valsartan 320 mg daily, metoprolol tartrate 50 mg b.i.d., omeprazole 20 mg 2 tabs at dinnertime, gabapentin 300 mg b.i.d., atorvastatin 40 mg daily, aspirin 81 mg daily, allopurinol 300 mg daily, psyllium husk 1 pac ket at bedtime, vitamin B complex 1 daily, PreserVision AREDS 2 softgels daily, ibuprofen 200 mg as n eeded. The patient was advised to follow up with Dr. Blanco in 8 weeks' time and to follow up in the office in 1-2 weeks with Ryan Eisenberg. /[id number]/MODL
== END 2017-02-07 16:33 | disposition home or self-care (01) ==
LOC: F3E 20:49
PROVIDERS: ADMIT Internal Medicine; ATTEND Internal Medicine
DX: R27.0 Ataxia, unspecified (principal); R79.89 Other specified abnormal findings of blood chemistry; E11.9 Type 2 diabetes mellitus without complications; Z95.0 Presence of cardiac pacemaker
CPT/HCPCS: 70450; 70496; 70498; 93005; 97161; 97165; G0378; G8978; G8979; G8987; G8988; G8989; Q9967

== ENCOUNTER → 2017-07-01 | Outpatient (CLI) | payer OTHER | LOC: BHFA 13:30 | PROVIDERS: ATTEND Internal Medicine Cardiovascular Disease | DX: R06.00 Dyspnea, unspecified (principal); R00.0 Tachycardia, unspecified | CPT/HCPCS: 78452; 93017; A9500; J2785 ==

== ENCOUNTER → 2017-08-29 | Outpatient (CLI) | payer OTHER, MEDICARE ==
[~2017-08-29] MED LIST: BUPIVACAINE 0.25% 30 ML SDV ONE; DEPO METHYLPREDNISOLONE 40 MG/ML SDV ONE; LIDOCAINE 1% 300 MG/30 ML SDV ONE
== END ==
LOC: FIMAGING 11:31
PROVIDERS: ATTEND Orthopaedic Surgery
PROC: 3E0U33Z Introduction of Anti-inflammatory into Joints, Percutaneous Approach (ICD-10-PCS; principal; 2017-08-29)
DX: M19.011 Primary osteoarthritis, right shoulder (principal)
CPT/HCPCS: 20611; J1030

== ENCOUNTER 2017-10-09 10:30 | Emergency (ER) | payer OTHER, MEDICARE ==
--- NOTE | 2017-10-09 12:16 | EDPHY ---
General Time Seen by Provider: 10/09/17 12:02 Narrative: CHIEF COMPLAINT: Back pain HISTORY OF PRESENT ILLNESS: Patient presents with complaints of back pain. He complains of low back pain on both sides this started this morning abruptly at 2:00 a.m. While sleeping. His awoke him with severe pain. There is no midline tenderness. No numbness, tingling or weakness abnormal for him. He has full ability to walk but it is very painful to do so. He states previous history of laminectomy and fusion last year with ongoing paresthesia of the lower extremities. No incontinence of bowel or bladder. No difficulty with bowel movements urination. No fever chills. He has no history of injections of the epidural space. No new trauma or injury. Contact the on-call neurosurgeon who referred him to the emergency department. No other associated complaints or modifying factors. Tylenol at 9:00 a.m.. REVIEW OF SYSTEMS: Ten systems reviewed and are negative unless otherwise noted in the HPI PCP: Dr. Lara SPECIALISTS: Dr. Tahir Rizo PAST MEDICAL HISTORY: Type 2 diabetes, lumbar stenosis, sciatica, arthritis PAST SURGICAL HISTORY: Bilateral TKA, pacemaker placement, laminectomy 2016 SOCIAL HISTORY: But never smoker. No alcohol or drug use. Retired from a [employer] engineer. Lives here locally with spouse independently FAMILY HISTORY: Noncontributory EXAMINATION General Appearance: Alert, no distress Head: normocephalic, atraumatic Eyes: Pupils equal and round, no conjunctival pallor or injection ENT, Mouth: Mucous membranes moist Neck: Normal inspection, supple, non-tender Respiratory: No retractions or distress Cardiovascular: Regular rate. Good signs of perfusion distally. Back: Lumbar incision that is midline, clean dry and intact. There is no cellulitis, abscess. There is tenderness of the lower back near the SI joints. There is no midline tenderness, crepitus or deformity. Neurological: A&O, nonfocal, antalgic but steady gait. Patellar reflexes symmetric 2+. Strength is symmetric in the knees, ankles and great toes of 5/5. Skin: Warm and dry, no rash. No petechiae or purpura Extremities: Nontender, no pedal edema. Symmetric range of motion. Psychiatric: Mood and affect normal DIFFERENTIAL DIAGNOSES: Including but not limited to sciatica, lumbar stenosis, lumbar fracture, discopathy, disc herniation, acute cord compression, cauda equina MDM: 12:05 p.m. Acute lower back pain over both SI joints without any midline tenderness. There is no evidence of acute cord compression or cauda equina. The patient is ambulatory but in severe pain. He has no trauma injury. Does have lumbar stenosis status post laminectomy fusion last year. He has no fever or recent injections. He has not felt ill. He has complaint is pain control and spasm. I have ordered medications but no imaging at this time. I will re-evaluate. 1:10 p.m. Patient re-evaluated. He is feeling significantly better after our treatment. He has ability to ambulate with significantly less pain that is tolerable to him. He has no numbness, tingling or weakness when doing so. I did offer further medication and/or imaging of the spine, which she has declined. He would like to go home and is comfortable this level of pain. We discussed short course of pain medication and muscle relaxant. I have checked his blood sugar here as he is a diabetic on no medications, and the value was 159 mg per dL. We discussed a short a Medrol Dosepak, but I would like him to discuss this with his primary care physician and neurosurgeon to discussed risks and benefits with his blood glucose. He is comfortable this plan and discharged home with ED precautions as documented. SUPERVISION: Patient was independently examined, but I discussed the case with my secondary supervising physician Dr. Montes - History Smoking Status: Former smoker - Objective Vital Signs: Initial Vital Signs Temperature (C) 97.7 F 10/09/17 10:31 Heart Rate 70 10/09/17 10:31 Respiratory Rate 16 10/09/17 10:31 Blood Pressure 146/74 H 10/09/17 10:31 O2 Sat (%) 96 10/09/17 10:31 O2 Delivery Mode Room Air Allergies/Adverse Reactions: venom-wasp [Wasp Venom] Allergy (Intermediate, Verified 10/09/17 10:30) Home Medications: Medication Instructions Recorded Hydrochlorothiazide [HCTZ (*)] 25 mg PO HS 12/03/11 Metoprolol Tartrate [Lopressor 50 50 mg PO BIDMEAL 06/12/16 mg (*)] Potassium Citrate [Potassium 20 meq PO TID 06/12/16 Citrate ER] Valsartan [Diovan] 320 mg PO DAILY@1200 06/12/16 amLODIPine BESYLATE [Amlodipine 10 mg PO DAILY 06/12/16 Besylate] Allopurinol [Allopurinol 300 MG 300 mg PO HS 07/30/16 (RX)] Atorvastatin Calcium [Lipitor 40 40 mg PO DAILY@1800 07/30/16 mg (*)] Gabapentin [Neurontin 300 MG (*)] 300 mg PO BID 07/30/16 Omeprazole [Prilosec 20 mg] 20 mg PO Q2D@1800 07/30/16 Apixaban [Eliquis] 5 mg PO BID 10/09/17 Diazepam [Valium 5 MG (*)] 5 mg PO TID PRN #15 tab 10/09/17 Hydrocodone/APAP 5/325 [Lebo 1 - 2 tab PO Q4H PRN #7 tab 10/09/17 5/325 (*)] methylPREDNISolone [Medrol Dose 1 each PO AD #1 ea 10/09/17 Renato] Laboratory Results: Laboratory Results 10/09/17 11:10 10/09/17 11:10 Sodium 139 mEq/L mEq/L (135-145) Potassium 4.2 mEq/L mEq/L (3.3-5.0) Chloride 109 mEq/L mEq/L (97-110) Carbon Dioxide 21 mEq/l L mEq/l (22-31) Anion Gap 9 mEq/L mEq/L (8-16) BUN 19 mg/dL mg/dL (7-23) Creatinine 0.9 mg/dL mg/dL (0.7-1.3) Estimated GFR > 60 Glucose 159 mg/dL H mg/dL (70-100) Calcium 9.9 mg/dL mg/dL (8.5-10.4) Medications Given: Discontinued Medications Diazepam (Valium) 2 mg IVP EDNOW ONE Stop: 10/09/17 12:18 Last Admin: 10/09/17 12:30 Dose: 2 mg Morphine Sulfate (Morphine) 2 mg IVP EDNOW ONE Stop: 10/09/17 12:18 Last Admin: 10/09/17 12:29 Dose: 2 mg Departure - Departure Disposition: Home, Routine, Self-Care Clinical Impression: Sciatica Qualifiers: Laterality: unspecified laterality Qualified Code(s): M54.30 - Sciatica, unspecified side Acute low back pain Qualifiers: Back pain laterality: bilateral Sciatica presence: with sciatica Sciatica laterality: bilateral sciatica Qualified Code(s): M54.42 - Lumbago with sciatica , left side Condition: Good Instructions: Low Back Strain (ED), Acute Low Back Pain (ED), Sacroiliitis (ED) Additional Instructions: 1. Valium and pain medication as prescribed as needed. Do not drive or operate machinery during these 2. Medrol Dosepak as prescribed if approved by her primary care physician. You will need to monitor her blood sugar 3. Contact established neurosurgeon for definitive care 4. ED precautions for return of pain, numbness, tingling, weakness, incontinence of bowel or bladder, retention of bowel or bladder, difficulty ambulating Referrals: Chad Lara MD [Primary Care Provider] - As per Instructions Mary Rizo MD [Medical Doctor] - As per Instructions Prescriptions: Diazepam [Valium 5 MG (*)] 5 mg PO TID PRN #15 tab PRN Reason: Spasms Hydrocodone/APAP 5/325 [Lebo 5/325 (*)] 1 - 2 tab PO Q4H PRN #7 tab PRN Reason: Pain, Moderate methylPREDNISolone [Medrol Dose Renato] 1 each PO AD #1 ea
[2017-10-09] MEDS ORDERED: DIAZEPAM 5 MG/ML 1 ML SYR IVP ONE (12:17)
[2017-10-09 13:38] VITALS: BP 126/72
== END 2017-10-09 13:38 | disposition home or self-care (01) ==
DX: M54.42 Lumbago with sciatica, left side (principal); E11.9 Type 2 diabetes mellitus without complications; Z79.01 Long term (current) use of anticoagulants; Z87.891 Personal history of nicotine dependence; Z95.0 Presence of cardiac pacemaker
CPT/HCPCS: 96374; 96375; 99284; J2270; J3360

== ENCOUNTER → 2017-11-29 | Outpatient (CLI) | payer OTHER, MEDICARE ==
[~2017-11-29] MED LIST changes: -BUPIVACAINE 0.25% 30 ML SDV ONE; -LIDOCAINE 1% 300 MG/30 ML SDV ONE
== END ==
LOC: FIMAGING 11:16
PROVIDERS: ATTEND Orthopaedic Surgery
PROC: 3E0233Z Introduction of Anti-inflammatory into Muscle, Percutaneous Approach (ICD-10-PCS; principal; 2017-11-29)
DX: M25.511 Pain in right shoulder (principal); M19.011 Primary osteoarthritis, right shoulder
CPT/HCPCS: 20552; 76942; J1030

== ENCOUNTER → 2018-09-27 | Outpatient (CLI) | payer OTHER, MEDICARE | LOC: FIMAGING 10:11 ==

== ENCOUNTER → 2018-10-02 | Outpatient (CLI) | payer OTHER, MEDICARE | LOC: FIMAGING 11:17 ==